=== PATIENT | female | born 1970 | race Caucasian/White ===

== ENCOUNTER 2020-04-20 18:26 | Emergency (ER) | payer OTHER ==
[~2020-04-20] VITALS: Ht 160 cm; Wt 63.5 kg
[2020-04-20 18:52] LABS: BILIRUBIN,URINE NEGATIVE (NEGATIVE); CLARITY,URINE CLEAR; COLOR,URINE YELLOW; GLUCOSE, URINE (UA) NEGATIVE (NEGATIVE); KETONES,URINE NEGATIVE (NEGATIVE); LEUKOCYTE ESTERASE ,URINE NEGATIVE (NEGATIVE); NITRITE,URINE NEGATIVE (NEGATIVE); PROTEIN,URINE NEGATIVE (NEGATIVE)
[2020-04-20] MEDS ORDERED: KETOROLAC 60 MG/2 ML VIAL IM STA (18:59)
[2020-04-20] MEDS ORDERED: CYCLOBENZAPRINE 10 MG (FLEXERIL) TAB PO STA (18:59)
[2020-04-20 19:01] LABS: BACTERIA,URINE TRACE /HPF; RBC,URINE RARE /HPF; SQUAMOUS EPITHELIAL CELL,UR 0-2 /HPF
--- NOTE | 2020-04-20 19:12 | ED Back Pain ---
General Chief Complaint: Back Problems Stated Complaint: L BACK PAIN, PELVIC PAIN Nursing Triage Note: PT AMB TO ROOM #7 WITH C/O R GROIN ET LOWER BACK PAIN. PT REPORTS DISCOMFORT BEGAN 2WKS AGO. DENIES URINARY S/S. A&OX4. Nursing Sepsis Screen: No Definite Risk History of Present Illness Date Seen by Provider: Apr 20, 2020 Time Seen by Provider: 18:50 Location: Lumbar Spine Timing/Duration: Changing Over Time, Other (2-3 weeks) Severity: Mild Pain/Injury Location: Back Radiation: Upper Legs (right groin) Method of Injury: Unknown Associated Symptoms: muscle spasms; No numbness in legs/feet, No tingling in legs/feet, No sensory/motor loss; lower back pain; No loss of bladder control, No loss of bowel control Allergies and Home Medications Allergies Coded Allergies: erythromycin base (Verified Allergy, Unknown, 04/20/20) Patient Home Medication List Home Medication List Reviewed: Yes Review of Systems Constitutional: no symptoms reported, see HPI Musculoskeletal: see HPI, back pain All Other Systems Reviewed Negative Unless Noted: Yes Past Bbdtypf-Gesuea-Diwgdk Hx Past Med/Social Hx: Reviewed Nursing Past Med/Soc Hx Patient Social History Alcohol Use: Rarely Uses Number of Drinks Today: 1 Alcohol Beverage of Choice: Vodka Recreational Drug Use: No Smoking Status: Current Everyday Smoker Type Used: Cigarettes 2nd Hand Smoke Exposure: Yes Recent Foreign Travel: No Contact w/Someone Who Travel: No Recent Infectious Disease Expo: No Recent Hopitalizations: No Seasonal Allergies Seasonal Allergies: No Past Medical History Surgeries: Yes (R ANKLE) Orthopedic Respiratory: No Cardiac: Yes Hypertension Neurological: No Genitourinary: No Gastrointestinal: No Musculoskeletal: No Endocrine: No HEENT: No Integumentary: No Physical Exam Vital Signs Vital Signs - First Documented 04/20/20 18:38 Temp 36.6 Pulse 65 Resp 18 B/P (MAP) 113/84 (94) Pulse Ox 96 O2 Delivery Room Air Capillary Refill : Less Than 3 Seconds Height, Weight, BMI Height: '" Weight: lbs. oz. kg; 24.00 BMI Method: General Appearance: No Apparent Distress, WD/WN HEENT: PERRL/EOMI, TMs Normal, Normal ENT Inspection, Pharynx Normal Neck: Full Range of Motion, Normal Inspection, Non Tender, Supple Cardiovascular: Regular Rate, Rhythm, No Edema Respiratory: Chest Non Tender, Lungs Clear, Normal Breath Sounds Gastrointestinal: Normal Bowel Sounds, Non Tender, Soft Back: Normal Inspection, No CVA Tenderness, Decreased Range of Motion, Muscle Spasm, Vertebral Tenderness (Lower Lumbar), Other (Power V/V L4-S1. + SLR on Right. ) Extremity: Normal Capillary Refill, Normal Inspection, Normal Range of Motion, Pelvis Stable, Other (No pain with ROM of hips) Neurologic/Psychiatric: Alert, Oriented x3, No Motor/Sensory Deficits, Normal Mood/Affect Skin: Normal Color, Warm/Dry Progress/Results/Core Measures Results/Orders Lab Results Laboratory Tests Test 04/20/20 18:40 Range/Units Urine Color YELLOW Urine Clarity CLEAR Urine pH 6.0 5-9 Urine Specific [place] <=1.005 1.016-1.022 Urine Protein NEGATIVE NEGATIVE Urine Glucose (UA) NEGATIVE NEGATIVE Urine Ketones NEGATIVE NEGATIVE Urine Nitrite NEGATIVE NEGATIVE Urine Bilirubin NEGATIVE NEGATIVE Urine Urobilinogen 0.2 < = 1.0 MG/DL Urine Leukocyte Esterase NEGATIVE NEGATIVE Urine RBC (Auto) 1+ H NEGATIVE Urine RBC RARE /HPF Urine WBC NONE /HPF Urine Squamous Epithelial Cells 0-2 /HPF Urine Crystals NONE /LPF Urine Bacteria TRACE /HPF Urine Casts NONE /LPF Urine Mucus NEGATIVE /LPF Urine Culture Indicated NO My Orders Orders - YENNI PIERSON Ua Culture If Indicated (04/20/20 18:34) Ketorolac Injection (Toradol Injection) (04/20/20 18:59) Cyclobenzaprine Tablet (Flexeril Tablet) (04/20/20 18:59) Lumbar Spine - 2-3 Views (04/20/20 18:59) Vital Signs/I&O 04/20/20 18:38 Temp 36.6 Pulse 65 Resp 18 B/P (MAP) 113/84 (94) Pulse Ox 96 O2 Delivery Room Air Blood Pressure Mean: 94 Diagnostic Imaging Diagonstic Imaging: Xray Plain Films/CT/US/NM/MRI: other (lumbar spine) Comments NAME: CHRISTEL LOMBARDO MED REC#: [id number] PT STATUS: REG ER : 1970 PHYSICIAN: YENNI PIERSON ADMIT DATE: 04/20/20/ER Signed Date of Exam:04/20/20 LUMBAR SPINE - 2-3 VIEWS INDICATION: Low back pain and right groin pain. Time of exam: 7:19 PM Frontal and lateral views of the lumbar spine were obtained. Curvature and alignment is normal. Vertebral body heights are well-maintained. Disc spaces are preserved. No fracture or subluxation is seen. IMPRESSION: No acute bony abnormality is detected. Dictated by: Dictated on workstation # [id number] Dict: 04/20/201930 Trans: 04/20/201937 [facility] [id number] Interpreted by: JUDIT DIAZ MD Electronically signed by: JUDIT DIAZ MD 04/20/201937 Reviewed: Reviewed by Me Departure Impression Primary Impression: Back strain Qualified Codes: S39.012A - Strain of muscle, fascia and tendon of lower back, initial encounter Additional Impression: Back pain Qualified Codes: M54.5 - Low back pain Disposition: 01 HOME, SELF-CARE Condition: Improved Departure-Patient Inst. Decision time for Depature: 19:20 Referrals: JIE VICK MD (PCP/Family) Primary Care Physician Patient Instructions: Low Back Pain (DC), Muscle Strain (DC) Add. Discharge Instructions: Alternate between Tylenol 650 mg and ibuprofen 600 mg every 4 hours for pain. Alternate between heat and ice to your low back. Follow-up with your primary care provider if symptoms are not improving or worsen. Use Biofreeze or icy hot with lidocaine. Return to emergency department for new, urgent health care problems. All discharge instructions reviewed with patient and/or family. Voiced understanding. Work/School Note: Work Release Form Date Seen in the Emergency Department: Apr 20, 2020 Return to Work: Apr 21, 2020 Restrictions: No Restrictions YENNI PIERSON Apr 20, 2020 19:12
--- NOTE | 2020-04-20 19:39 | Diagnostic Imaging Report ---
INDICATION: Low back pain and right groin pain. Time of exam: 7:19 PM Frontal and lateral views of the lumbar spine were obtained. Curvature and alignment is normal. Vertebral body heights are well-maintained. Disc spaces are preserved. No fracture or subluxation is seen. IMPRESSION: No acute bony abnormality is detected. Dictated by: Dictated on workstation # [id number]
[2020-04-20 19:45] VITALS: BP 114/80
--- OUTSIDE RECORDS SUMMARY | 2020-04-20 21:33 | XMS REPORT | Continuity of Care Document ---
Author Organization Unknown Address Unknown Phone Unavailable Allergies Active Description Code Type Severity Reaction Onset Reported/Identified Relationship to Patient Clinical Status Yes AZITHROMYCIN MODERATE MODERATE Medications Medication Packaging Start Date St op Date Route Dosage Sig NS 0.9##37; 1000 ML 02/22/2019 02/22/2019 IV 1 THIAMINE TAB 100 MG (VIT B-1) 02/22/2019 02/22/2019 ORAL 1 VITAMIN (THERAPEUTIC MULTIVITAMIN) 02/22/2019 02/22/2019 ORAL 1 methylPREDNISolone VIAL 125MG(soluMEDROL 02/22/2019 02/22/2019 IV PUSH 1 PANTOPRAZOLE 40 MG VIAL 02/22/2019 02/22/2019 IVPB 1 LORazepam INJ, 2 MG/ML IV/IM (ATIVAN) 02/22/2019 02/22/2019 IV PUSH 1 DUONEB 0.5/3 MG 3 ML UD 02/22/2019 02/22/2019 INHALATION 1 LISINOPRIL TAB 10 MG (ZESTRIL) MG 10/23/2019 10/23/2019 ONCE&1823 Problems Date Dx Coded Attending Type Code Diagnosis Diagnosed By 02/23/2019 IVY HERNANDEZ F1020 Alcohol dependence, uncomplicated 02/23/2019 IVY HERNANDEZ D24112 Nicotine dependence, cigarettes, uncomplicated 02/23/2019 IVY HERNANDEZ P J9801 Acute bronchospasm 02/23/2019 IVY HERNANDEZ K2920 Alcoholic gastritis without bleeding 02/23/2019 IVY HERNANDEZ R0600 Dyspnea, unspecified 02/23/2019 IVY HERNANDEZ R0609 Other forms of dyspnea 04/30/2019 Tosha Ferguson Final Z11.3 Encounter for screening for infections with a predomin antly 10/23/2019 EMILIE WEINSTEIN APRN W 401 .0 MALIGNANT ESSENTIAL HYPERTENSION 10/23/2019 EMILIE WEINSTEIN APRN I10 ESSENTIAL (PRIMARY) HYPERTENSION Procedures There is no data. Results Test Result Range CBCD (AUTO DIFF) - 04/20/19 22:35 WBC 10.6 x10 3UL 4.0 - 10.0 NEUTROPHIL % 54.4 % 30.0 - 75.0 LYMPHOCYTES % 33.9 % 18.0 - 40.0 MONOCYTES % 9.6 % 1.0 - 8.0 EOSINOPHILS % 1.1 % 0.0 - 3.0 BASOPHILS % 0.5 % 0.0 - 2.0 IMMAT GRAN % 0.5 % 0.0 - 1.0 RBC 4.64 MIL/UL 4.20 - 5.00 HGB 14.0 g/dL 12.0 - 15.0 HCT 41.9 % 37.0 - 47.0 MCV 90 FL 80 - 100 MCH 30.2 PG 26.0 - 35.0 MCHC 33.4 % 28.0 - 37.3 RDW 14.8 %CV 10.5 - 14.5 PLATELETS 344 X10 3UL 150 - 400 NRBC 0 % 0 - 0 DIFFERENTIAL AUTOMATED NRG BASIC MET PANEL - 02/22/19 22:35 GLUCOSE 91 MG/DL 65 - 110 BUN 11 MG/DL 7 - 21 CREATININE 0.8 mg/dl 0.7 - 1.5 BUN/CRE RATIO 13.8 7.0 - 25.0 SODIUM 140 MMOL/L 137 - 145 POTASSIUM 4.0 MMOL/L 3.6 - 5.0 CHLORIDE 109 MMOL/L 98 - 107 CO2 23 mmol/L 22 - 30 CALCIUM 9.0 MG/DL 8.4 - 10.2 AGE 50 YEARS NRG gfr 81 NRG eGFR >60 mL/min/BSA NRG MAGNESIUM - 02/22/19 22:35 MAGNESIUM 2.1 MG/DL 1.7 - 2.2 TROPONIN I - 02/22/19 22:35 TROPONIN I <0.012 NG/ML 0.000 - 0.030 HEPATIC FUNCT PANEL - 02/22/19 22:35 HEPATIC FUNCT PANEL LAB NRG SGOT 42 U/L 8 - 39 ALKALINE PHOS 109 U/L 20 - 155 TOTAL BILI 0.20 MG/DL 0.20 - 1.20 DIRECT BILI 0.2 MG/DL 0.0 - 0.4 SGPT 34 U/L 9 - 52 ALBUMIN 4.0 G/DL 3.5 - 5.0 TOTAL PROTEIN 7.4 G/DL 6.3 - 8.2 LIPASE - 02/22/19 22:35 LIPASE 245 U/L 23 - 300 CHLAMYDIA GC BY PCR - 04/30/19 14:20 N. Gonorrhoeae Amplified Not Detected N ot Detected C. Trachomatis Amplified Not Detected N ot Detected Media Type Urine NRG Trichomonas by PCR - 04/30/19 14:20 Media Type Urine NRG HIV 1/2 AG/AB REFLEX - 04/30/19 14:20 HIV p24 Antigen Negative Negative HEP C AB, REFLEX to QUANT AND GENOTYPE - 04/30/19 14:20 Hepatitis C Virus Ab 0.04 0.00-0.90 SYPHILIS (TP) AB - 04/30/19 14:20 Syphilis Antibody Interp Non-Reactive N on-Reactive Syphilis Antibody Quant 0.1 0.0-0. 9 Cardiac Panel - 10/23/19 18:23 CK 41 U/L 26-174 CK-MB 1.2 ng/ml 0.0-9.2 Myoglobin 17.2 ng/ml 1.6-106.0 Troponin <0.020 ng/mL 0.0-0.4 Urinalysis - 10/23/19 18:55 Icotest N/A Negative Urine Volume Urine Volume Sufficient (10mL) Urine Yeast No Yeast present Urine-Appearance Slightly Cloudy Clear Urine-Bacteria Trace Urine-Bilirubin Negative Negative Urine-Blood 1+ Negative Urine-Color Yellow Colorless-[place] ow Urine-Epithelial Cells 0-5/HPF Urine-Glucose Negative Negative Urine-Ketones Negative Negative Urine-Leukocytes Negative Negative Urine-Nitrite Negative Negative Urine-Other Urine Saved if Culture Need ed (48hrs from time of collection) Urine-pH 6.0 5-8.5 Urine-Protein Negative Negative Urine-RBC 0-2/HPF Urine-Specific [place] 1.025 1.000-1 .030 Urine-WBC Rare/HPF Urobilinogen 0.2 0.2-1.0 Complete urinalysis with reflex to cultu re - 04/20/20 18:40 Urine color determination YELLOW NRG Urine clarity determination CLEAR NR G Urine pH measurement by test strip 6.0 5-9 Specific gravity of urine by test strip <= 1.016-1.022 Urine protein assay by test strip, semi-quantitative NEGATIVE NEGATIVE Urine glucose detection by automated test strip NE GATIVE NEGATIVE Erythrocytes detection in urine sediment by light micr oscopy 1+ NEGATIVE Urine ketones detection by automated test strip NE GATIVE NEGATIVE Urine nitrite detection by test strip NEGATIVE NEGATIVE Urine total bilirubin detection by test strip NEGA TIVE NEGATIVE Urine urobilinogen measurement by automated test strip (mass/volume) 0.2 mg/dL < = 1.0 Urine leukocyte esterase detection by dipstick NEG ATIVE NEGATIVE Automated urine sediment erythrocyte cou nt by microscopy (number/high power field) RARE NRG Automated urine sediment leukocyte count by microscopy (number/high power field) NONE NRG Bacteria detection in urine sediment by light microsco py TRACE NRG Squamous epithelial cells detection in u rine sediment by light microscopy 0-2 NRG Crystals detection in urine sediment by light microsco py NONE NRG Casts detection in urine sediment by light microscopy NONE NRG Mucus detection in urine sediment by light microscopy NEGATIVE NRG Complete urinalysis with reflex to culture NO NRG Encounters ACCT No. Visit Date/Time Discharge Status Pt. Type Provider Facility Loc./Unit Complaint [id number] 02/22/2019 22:31:00 02/23/2019 00:48: 00 DIS Emergency IVY HERNANDEZ A 0 14 C/O COPD [id number] 04/30/2019 18:01:00 Document Registration [id number] 04/20/2020 19:01:00 Document Registration [id number] 04/30/2019 18:01:00 9 23:59:00 DIS Outpatient Tosha Ferguson [facility] [id number] 10/23/2019 17:57:00 10/23/2019 19:26 :00 DIS Outpatient EMILIE WEINSTEIN APRN [facility] ER [id number] 10/23/2019 18:23:54 Document Registration [id number] 05/20/2019 04:37:36 ACT Document Registration [id number] 02/22/2019 22:31:00 Document Registration [id number] 05/19/2019 11:22:00 9 23:59:59 CLS Emergency [facility]SSA [facility] [id number] 11/12/2018 08:00:00 ACT Unknown [id number] 12/16/2019 14:00:00 12/16/2019 23:59: 59 CLS Outpatient [facility]
--- OUTSIDE RECORDS SUMMARY | 2020-04-20 21:33 | XMS REPORT ---
Author Author CHRISTEL Ferguson Organization [facility] enter Address [address], [address] [place] [address] Care Team Providers Care Electrical Power Station Technician Name Role Phone Tosha Ferguson Unavailable PROBLEMS Type Condition ICD9-CM Code [id number] Code Onset Dates Condition S tatus SNOMED Code Problem Anxiety F41.9 Active 32218021 Problem PTSD (post-traumatic stress disorder) F43.10 Active 27198649 Problem Hypertension I10 Active 6395305 3 Problem Depression F32.9 Active 05248374 ALLERGIES No Information ENCOUNTERS Encounter Location Date Diagnosis [facility] [address] [id number] [id number] May, [facility] [address] [id number] [id number] May, [address] [id number] [id number] Apr, Encounter for drug rehabilit ation Z71.51 ; Screening for STD (sexually transmitted disease) Z11.3 ; Methamphetamine abuse F15.10 ; Tobacco abuse Z72.0 and Depression F32.9 IMMUNIZATIONS No Known Immunizations SOCIAL HISTORY Never Assessed REASON FOR VISIT propanolol and paroxetine PLAN OF CARE VITAL SIGNS MEDICATIONS Medication Instructions Dosage Frequency Start Date End Date Duration S tatus Paroxetine HCl 10 MG Orally at bedtime 3 tablets Active Propranolol HCl 10 MG Orally twice per day 1 tablet Active RESULTS No Results PROCEDURES No Known procedures INSTRUCTIONS MEDICATIONS ADMINISTERED No Known Medications MEDICAL (GENERAL) HISTORY Type Description Date Medical History PTSD (post-traumatic stress disorder) Medical History Depression Medical History Anxiety Medical History Hypertension Surgical History APPENDECTOMY 1972 Surgical History TONSILLECTOMY 1976 Surgical History 04/2005 Surgical History FRACTURED RIGHT ANKLE 11/2009 Hospitalization History [facility] INPATIENT---DETOX 2018
--- OUTSIDE RECORDS SUMMARY | 2020-04-20 21:33 | XMS REPORT ---
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 Name Role Phone Tosha Ferguson Unavailable PROBLEMS Type Condition ICD9-CM Code [id number] Code Onset Dates Condition S tatus SNOMED Code Problem Anxiety F41.9 Active 88903244 Problem PTSD (post-traumatic stress disorder) F43.10 Active 61163350 Problem Hypertension I10 Active 7343640 3 Problem Depression F32.9 Active 64071607 ALLERGIES No Information ENCOUNTERS Encounter Location Date Diagnosis [facility] [address] [id number] [place], [place] [id number] May, [facility] [address] [id number] [place] [id number] May, [address] [id number] [place], [place] [phone] Apr, Encounter for drug rehabilit ation Z71.51 ; Screening for STD (sexually transmitted disease) Z11.3 ; Methamphetamine abuse F15.10 ; Tobacco abuse Z72.0 and Depression F32.9 IMMUNIZATIONS No Known Immunizations SOCIAL HISTORY Never Assessed REASON FOR VISIT Refills PLAN OF CARE VITAL SIGNS MEDICATIONS Medication Instructions Dosage Frequency Start Date End Date Duration S tatus Paroxetine HCl 10 MG Orally at bedtime 3 tablets 30 days Active Propranolol HCl 10 MG Orally twice per day 1 tablet 30 days Active RESULTS No Results PROCEDURES No Known procedures INSTRUCTIONS MEDICATIONS ADMINISTERED No Known Medications MEDICAL (GENERAL) HISTORY Type Description Date Medical History PTSD (post-traumatic stress disorder) Medical History Depression Medical History Anxiety Medical History Hypertension Surgical History APPENDECTOMY 1972 Surgical History TONSILLECTOMY 1976 Surgical History 04/2005 Surgical History FRACTURED RIGHT ANKLE 11/2009 Hospitalization History [facility] INPATIENT---DETOX 2018
--- OUTSIDE RECORDS SUMMARY | 2020-04-20 21:33 | XMS REPORT ---
Author Author CHRISTEL Ferguson Organization [facility] enter Address [address], [address] [place] [address] Care Team Providers Care Graphic Technician Name Role Phone Tosha Ferguson Unavailable PROBLEMS Type Condition ICD9-CM Code [id number] Code Onset Dates Condition S tatus SNOMED Code Problem Anxiety F41.9 Active 85833689 Problem PTSD (post-traumatic stress disorder) F43.10 Active 11687705 Problem Hypertension I10 Active 0542302 3 Problem Depression F32.9 Active 31078186 ALLERGIES Substance Reaction Event Type Date Status ERYTHROMYIN DIFFICULTY WALKING Non Drug Allergy Apr, Activ e ENCOUNTERS Encounter Location Date Diagnosis [address] [id number] [id number] Apr, Encounter for drug rehabilit ation Z71.51 ; Screening for STD (sexually transmitted disease) Z11.3 ; Methamphetamine abuse F15.10 ; Tobacco abuse Z72.0 and Depression F32.9 IMMUNIZATIONS No Known Immunizations SOCIAL HISTORY Never Assessed REASON FOR VISIT FIRST STEP EXAM PLAN OF CARE Activity Details Follow Up prn Reason: Pending Test CHLAMYDIA GC URINE Pending Test SYPHILIS TREPONEMAL ANTIBODY Pending Test TV PCR Trichomonas Vaginalis by PCR Pending Test HIV 1,2 4th Gen, Reflex to D ifferentiation & PCR Pending Test Hepatitis C Virus Ab, Reflex to Quant & Genotype VITAL SIGNS Temperature 98.5 degrees Fahrenheit 2019-04-30 Heart Rate 66 /min 2019-04-30 Height 63 in 2019-04-30 Weight 156 lbs 2019-04-30 BMI 27.63 kg/m2 2019-04-30 Respiratory Rate 16 /min 2019-04-30 Oximetry 97 % 2019-04-30 Blood pressure systolic 138 mm Hg 2019-04-30 Blood pressure diastolic 84 mm Hg 2019-04-30 MEDICATIONS Unknown Medications RESULTS No Results PROCEDURES Procedure Date Ordered Result Body Site VENIPUNCT, ROUTINE* April 30, 2019 INSTRUCTIONS MEDICATIONS ADMINISTERED No Known Medications MEDICAL (GENERAL) HISTORY Type Description Date Medical History PTSD (post-traumatic stress disorder) Medical History Depression Medical History Anxiety Medical History Hypertension Surgical History APPENDECTOMY 1971 Surgical History TONSILLECTOMY 1976 Surgical History 04/2005 Surgical History FRACTURED RIGHT ANKLE 11/2009 Hospitalization History [facility] INPATIENT---DETOX 2018
== END 2020-04-20 19:45 | disposition home or self-care (01) ==
LOC: ER 18:29
DX: S39.012A Strain of muscle, fascia and tendon of lower back, initial encounter (principal); F17.210 Nicotine dependence, cigarettes, uncomplicated; Z88.1 Allergy status to other antibiotic agents; X58.XXXA Exposure to other specified factors, initial encounter
CPT/HCPCS: 72100; 81000

== ENCOUNTER 2020-04-25 08:26 | Emergency (ER) | payer OTHER ==
[~2020-04-25] VITALS: Ht 160 cm; Wt 63.6 kg
--- OUTSIDE RECORDS SUMMARY | 2020-04-25 08:30 | XMS REPORT | Continuity of Care Document ---
Author Organization Unknown Address Unknown Phone Unavailable Allergies Active Description Code Type Severity Reaction Onset Reported/Identified Relationship to Patient Clinical Status Yes AZITHROMYCIN MODERATE MODERATE Yes erythromycin base [id number] Drug Allergy Unknown N/A 04/20/2020 Medications Medication Packaging Start Date St op [...] F1020 Alcohol dependence, uncomplicated 02/23/2019 IVY HERNANDEZ S W52237 Nicotine dependence, cigarettes, uncomplicated 02/23/2019 IVY HERNANDEZ P J9801 Acute bronchospasm 02/23/2019 IVY HERNANDEZ S K2920 Alcoholic gastritis without bleeding 02/23/2019 IVY HERNANDEZ A R0600 Dyspnea, unspecified 02/23/2019 IVY HERNANDEZ S R0609 Other forms of dyspnea 04/30/2019 Tosha Ferguson Final Z11.3 Encounter for screening for infections with a predomin antly 10/23/2019 EMILIE WEINSTEIN APRN 401 .0 MALIGNANT ESSENTIAL HYPERTENSION 10/23/2019 CORINNA 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 Results Test Result Range CBCD (AUTO DIFF) - 02/22/19 22:35 WBC 10.6 x10 3UL 4.0 - [...] Negative Urine-Blood 1+ Negative Urine-Color Yellow Colorless-Lt. [place] ow Urine-Epithelial Cells 0-5/HPF Urine-Glucose Negative Negative Urine-Ketones Negative Negative Urine-Leukocytes Negative Negative Urine-Nitrite Negative Negative Urine-Other Urine Saved if Culture Need ed (48hrs from time of collection) Urine-pH 6.0 5-8.5 Urine-Protein Negative Negative Urine-RBC 0-2/HPF Urine-Specific [place] 1.025 1.000-1 .030 Urine-WBC Rare/HPF Urobilinogen 0.2 [...] Status Pt. Type Provider Facility Loc./Unit Complaint [id number] 02/22/2019 22:31:00 02/23/2019 00:48: 00 DIS Emergency IVY HERNANDEZ A 0 14 C/O COPD [id number] 04/30/2019 18:01:00 Document Registration [id number] 04/20/2020 18:29:00 020 19:45:00 DIS Outpatient YENNI PIERSON a [facility] ER L BACK PAIN, PELVIC DILAN N [id number] 04/30/2019 18:01:00 9 23:59:00 DIS Outpatient Tosha Ferguson [facility] [id number] 10/23/2019 17:57:00 10/23/2019 19:26 :00 DIS Outpatient EMILIE WEINSTEIN APRN [facility] ER [id number] 10/23/2019 18:23:54 Document Registration [id number] 05/20/2019 04:37:36 ACT Document Registration [id number] 02/22/2019 22:31:00 Document Registration [id number] 05/19/2019 11:22:00 9 23:59:59 [facility] Emergency ALLYSSA SPIVEY [facility] [id number] 11/12/2018 08:00:00 ACT Unknown [id number] 04/22/2020 16:45:00 ACT Outpatient [facility]
[2020-04-25] MEDS ORDERED: NS IV 1000 ML 1,000 ML IV SCH (09:06)
[2020-04-25] MEDS ORDERED: NITROGLYCERIN 0.4 MG SL TABS BTL 25'S SL ONE (09:09)
[2020-04-25] MEDS ORDERED: ASPIRIN 81 MG CHEW (CHILDREN'S ASA) ONE (09:10)
[2020-04-25] MEDS ORDERED: ONDANSETRON 4 MG/2 ML (SDV) Z0FRAN ONE (09:10)
[2020-04-25] MEDS ORDERED: ASPIRIN 81 MG CHEW (CHILDREN'S ASA) PO ONE (09:15)
[2020-04-25] MEDS ORDERED: ONDANSETRON 4 MG/2 ML (SDV) Z0FRAN IVP ONE (09:15)
[2020-04-25] MEDS ORDERED: SERT100T8 PO (09:16)
[2020-04-25] MEDS ORDERED: OMEP10CA5 PO (09:16)
[2020-04-25] MEDS ORDERED: PRAZ1CAP2 PO (09:16)
[2020-04-25 09:26] LABS: BASOPHILS % (AUTO) 0 % (0-10); EOSINOPHILS # (AUTO) 0.1 10^3/uL (0.0-0.3); EOSINOPHILS % (AUTO) 1 % (0-10); HEMATOCRIT 45 % (35-52); HEMOGLOBIN 15.3 G/DL (11.5-16.0); LYMPHOCYTES % (AUTO) 13 % (12-44); MEAN CORPUSCULAR HEMOGLOBIN 29 PG (25-34); MEAN CORPUSCULAR HGB CONC 34 G/DL (32-36); MEAN CORPUSCULAR VOLUME 84 FL (80-99); MEAN PLATELET VOLUME 10.7 FL (7.4-10.4); MONOCYTES # (AUTO) 1.3 X 10^3 (0.0-1.0); MONOCYTES % (AUTO) 8 % (0-12); NEUTROPHILS # (AUTO) 12.6 X 10^3 (1.8-7.8); NEUTROPHILS % (AUTO) 78 % (42-75); PLATELET COUNT 328 10^3/uL (130-400); RED CELL DISTRIBUTION WIDTH 13.9 % (10.0-14.5); WHITE BLOOD COUNT 16.1 10^3/uL (4.3-11.0)
[2020-04-25] MEDS: NITROGLYCERIN 0.4 MG SL TABS BTL 25'S SL PRN ×2 (09:32→09:40)
[2020-04-25 09:37] LABS: ALBUMIN 4.3 GM/DL (3.2-4.5); CHLORIDE 104 MMOL/L (98-107); POTASSIUM 3.6 MMOL/L (3.6-5.0); SODIUM 138 MMOL/L (135-145)
[2020-04-25 09:38] LABS: INR 0.9 (0.8-1.4); PROTHROMBIN TIME PATIENT 12.8 SEC (12.2-14.7)
--- NOTE | 2020-04-25 09:38 | Diagnostic Imaging Report ---
PATIENT HISTORY: Chest pain. TECHNIQUE: Single frontal view of the chest. COMPARISON: None FINDINGS: The lung volumes are normal. No focal consolidation is seen. No large pleural effusion or pneumothorax is seen. The cardiomediastinal silhouette is normal in size and contour. No acute osseous abnormality is seen. IMPRESSION: No acute pulmonary abnormality seen. Dictated by: Dictated on workstation # [id number]
[2020-04-25 09:39] LABS: GLUCOSE 106 MG/DL (70-105); TOTAL PROTEIN 8.3 GM/DL (6.4-8.2)
[2020-04-25 09:41] LABS: BILIRUBIN,TOTAL 0.9 MG/DL (0.1-1.0); CARBON DIOXIDE 21 MMOL/L (21-32)
[2020-04-25 09:43] LABS: ALKALINE PHOSPHATASE 107 U/L (40-136); CREATININE SERUM 0.87 MG/DL (0.60-1.30); GFR ESTIMATED > 60
[2020-04-25 09:44] LABS: BUN/CREATININE RATIO 8
[2020-04-25 09:46] LABS: ALANINE AMINOTRANSFERASE 44 U/L (0-55); MAGNESIUM 1.8 MG/DL (1.6-2.4)
[2020-04-25 09:47] LABS: LIPASE 38 U/L (8-78)
[2020-04-25 09:52] LABS: BAND NEUTROPHILS 0 %; BASOPHILS % (MANUAL) 1 %; EOSINOPHILS % (MANUAL) 0 %; LYMPHOCYTES % (MANUAL) 19 %; MONOCYTES % (MANUAL) 5 %; NEUTROPHILS % (MANUAL) 75 %; RBC MORPH NORMAL
--- NOTE | 2020-04-25 10:05 | NUR ---
Pt swabbed for COVID-19 at this time.
--- NOTE | 2020-04-25 10:11 | ED Chest Pain ---
General Chief Complaint: Cough/Cold/Flu Symptoms Stated Complaint: FEVER / COUGH / SOA Nursing Triage Note: PT C/O COUGH, FEVER, VOMITING, CHEST PAIN STARTING YESTERDAY. SHE REPORTS SHE WORKS AT [employer] ET SOMEONE SHE WORKS WITH IS RUMORED TO HAVE COVID-19 Nursing Sepsis Screen: Possible Severe Sepsis Risk Source: patient Exam Limitations: no limitations History of Present Illness Date Seen by Provider: Apr 25, 2020 Time Seen by Provider: 09:39 Initial Comments PT to ER by POV with CP substernal to left chest and cough since yesterday. No Fever but positive malaise. Co-workers with Covid 19. Nausea but no vomiting. No Heart or lung Hx. Smokes 1/2 ppd. 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 No injecting or Hx of Endocarditis. No abd pain, dysuria or diarrhea. Allergies and Home Medications Allergies Coded Allergies: erythromycin base (Verified Allergy, Unknown, 04/20/20) Home Medications Benzonatate 100 Mg Capsule, 100 MG PO Q6H PRN for COUGH Prescribed by: NAREN NIELSEN on 04/25/20 1247 Omeprazole 10 Mg Capsule.dr, 10 MG PO DAILY, (Reported) Sertraline HCl 100 Mg Tablet, 100 MG PO DAILY, (Reported) Patient Home Medication List Home Medication List Reviewed: Yes Review of Systems Review of Systems Constitutional: No chills, No fever; malaise EENTM: No Blurred Vision, No Double Vision Respiratory: Cough, Shortness of Air Cardiovascular: Chest Pain; Denies Edema Gastrointestinal: Denies Constipated, Denies Diarrhea, Denies Nausea Genitourinary: Denies Discharge, Denies Drainage Musculoskeletal: No back pain, No joint pain Skin: No pruritus, No rash Psychiatric/Neurological: Denies Headache, Denies Numbness, Denies Paresthesia All Other Systems Reviewed Negative Unless Noted: Yes Past Bwtadxi-Yyymom-Uqoojg Hx Patient Social History Alcohol Use: Rarely Uses Alcohol Beverage of Choice: Vodka Recreational Drug Use: No Smoking Status: Current Everyday Smoker Type Used: Cigarettes 2nd Hand Smoke Exposure: Yes Recent Foreign Travel: No Contact w/Someone Who Travel: No Recent Infectious Disease Expo: No Recent Hopitalizations: No Physical Abuse: No Sexual Abuse: No Fear: No Seasonal Allergies Seasonal Allergies: No Past Medical History Surgeries: Yes (R ANKLE) Orthopedic Respiratory: No Cardiac: Yes Hypertension Neurological: No Genitourinary: No Gastrointestinal: No Musculoskeletal: No Endocrine: No HEENT: No Psychosocial: Yes Sleep Difficulties Integumentary: No Physical Exam Vital Signs Vital Signs - First Documented 04/25/20 08:30 Temp 36.7 Pulse 93 Resp 24 B/P (MAP) 153/118 (130) Pulse Ox 96 O2 Delivery Room Air Capillary Refill : Less Than 3 Seconds Height, Weight, BMI Height: '" Weight: lbs. oz. kg; 24.00 BMI Method: General Appearance: No Apparent Distress, WD/WN HEENT: PERRL/EOMI, Pharynx Normal, Moist Mucous Membranes Neck: Full Range of Motion, Normal Inspection Respiratory: Chest Non Tender, No Accessory Muscle Use, No Respiratory Distress Cardiovascular: Regular Rate, Rhythm, No Edema, Normal Peripheral Pulses Gastrointestinal: Normal Bowel Sounds, Non Tender, Soft Extremity: Normal Capillary Refill, Normal Inspection Neurologic/Psychiatric: Alert, Oriented x3 Skin: Normal Color, Warm/Dry Progress/Results/Core Measures Results/Orders Lab Results Laboratory Tests Test 04/25/20 09:00 04/25/20 10:05 04/25/20 12:00 Range/Units White Blood Count 16.1 H 4.3-11.0 10^3/uL Red Blood Count 5.36 4.35-5.85 10^6/uL Hemoglobin 15.3 11.5-16.0 G/DL Hematocrit 45 35-52 % Mean Corpuscular Volume 84 80-99 FL Mean Corpuscular Hemoglobin 29 25-34 PG Mean Corpuscular Hemoglobin Concent 34 32-36 G/DL Red Cell Distribution Width 13.9 10.0-14.5 % Platelet Count 328 130-400 10^3/uL Mean Platelet Volume 10.7 H 7.4-10.4 FL Neutrophils (%) (Auto) 78 H 42-75 % Lymphocytes (%) (Auto) 13 12-44 % Monocytes (%) (Auto) 8 0-12 % Eosinophils (%) (Auto) 1 0-10 % Basophils (%) (Auto) 0 0-10 % Neutrophils # (Auto) 12.6 H 1.8-7.8 X 10^3 Lymphocytes # (Auto) 2.0 1.0-4.0 X 10^3 Monocytes # (Auto) 1.3 H 0.0-1.0 X 10^3 Eosinophils # (Auto) 0.1 0.0-0.3 10^3/uL Basophils # (Auto) 0.0 0.0-0.1 10^3/uL Neutrophils % (Manual) 75 % Lymphocytes % (Manual) 19 % Monocytes % (Manual) 5 % Eosinophils % (Manual) 0 % Basophils % (Manual) 1 % Band Neutrophils 0 % Blood Morphology Comment NORMAL Prothrombin Time 12.8 12.2-14.7 SEC INR Comment 0.9 0.8-1.4 Activated Partial Thromboplast Time 29 24-35 SEC Sodium Level 138 135-145 MMOL/L Potassium Level 3.6 3.6-5.0 MMOL/L Chloride Level 104 98-107 MMOL/L Carbon Dioxide Level 21 21-32 MMOL/L Anion Gap 13 5-14 MMOL/L Blood Urea Nitrogen 7 7-18 MG/DL Creatinine 0.87 0.60-1.30 MG/DL Estimat Glomerular Filtration Rate > 60 BUN/Creatinine Ratio 8 Glucose Level 106 H 70-105 MG/DL Calcium Level 9.0 8.5-10.1 MG/DL Corrected Calcium 8.8 8.5-10.1 MG/DL Magnesium Level 1.8 1.6-2.4 MG/DL Total Bilirubin 0.9 0.1-1.0 MG/DL Aspartate Amino Transf (AST/SGOT) 49 H 5-34 U/L Alanine Aminotransferase (ALT/SGPT) 44 0-55 U/L Alkaline Phosphatase 107 40-136 U/L Myoglobin 69.0 10.0-92.0 NG/ML Troponin I < 0.028 < 0.028 <0.028 NG/ML B-Type Natriuretic Peptide 79.7 <100.0 PG/ML Total Protein 8.3 H 6.4-8.2 GM/DL Albumin 4.3 3.2-4.5 GM/DL Lipase 38 8-78 U/L My Orders Orders - NAREN NIELSEN Cbc With Automated Diff (04/25/20 09:06) Magnesium (04/25/20 09:06) Chest 1 View, Ap/Pa Only (04/25/20 09:06) Ekg Tracing (04/25/20 09:06) Comprehensive Metabolic Panel (04/25/20 09:06) Myoglobin Serum (04/25/20 09:06) Protime With Inr (04/25/20 09:06) Partial Thromboplastin Time (04/25/20 09:06) O2 (04/25/20 09:06) Monitor-Rhythm Ecg Trace Only (04/25/20 09:06) Ed Iv/Invasive Line Start (04/25/20 09:06) Lipase (04/25/20 09:06) BNP (04/25/20 09:06) Nitroglycerin 0.4 Mg Btl 25's (Nitrostat (04/25/20 09:15) Aspirin Chewable Tablet (Baby Aspirin Ch (04/25/20 09:15) Ed Iv/Invasive Line Start (04/25/20 09:06) Ns Iv 1000 Ml (Sodium Chloride 0.9%) (04/25/20 09:06) Ondansetron Injection (Zofran Injectio (04/25/20 09:15) Troponin I (04/25/20 09:00) Manual Differential (04/25/20 09:00) Troponin I (04/25/20 12:00) Coronavirus Sars-Cov-2 So 2018 (04/25/20 10:11) Nitroglycerin 0.4 Mg Btl 25's (Nitrostat (04/25/20 09:09) Aspirin Chewable Tablet (Baby Aspirin Ch (04/25/20 09:10) Ondansetron Injection (Zofran Injectio (04/25/20 09:10) Medications Given in ED Current Medications Medications Dose Ordered Sig/Nataliia Route Start Time Stop Time Status Last Admin Dose Admin Aspirin 324 mg ONCE ONCE PO 04/25/20 09:15 04/25/20 09:16 DC 04/25/20 09:30 324 MG Nitroglycerin 0.4 mg UD PRN SL 04/25/20 09:15 04/25/20 13:06 DC 04/25/20 09:40 0.4 MG Ondansetron HCl 4 mg ONCE ONCE IVP 04/25/20 09:15 04/25/20 09:16 DC 04/25/20 09:16 4 MG Vital Signs/I&O 04/25/20 04/25/20 04/25/20 08:30 09:42 12:55 Temp 36.7 36.7 Pulse 93 68 Resp 24 18 B/P (MAP) 153/118 (130) 143/81 (130) Pulse Ox 96 93 O2 Delivery Room Air Room Air Room Air Blood Pressure Mean: 130 Progress Progress Note : Time: 10:13 Progress Note after ondansetron and 2 doses of NG the pain and Nausea is gone. Delta Trop at 1200. Heart Score 2 points. Low risk; 0.9-1.7% 30-day MACE; Repeat troponin at 3 hours and if negative, discharge home with outpatient follow-up. Initial ECG Impression Date: Apr 25, 2020 Initial ECG Impression Time: 08:38 Initial ECG Rate: 75 Initial ECG Rhythm: Normal Sinus Initial ECG Intervals: Normal Initial ECG Impression: Normal Initial ECG Comparisson: No Previous ECG Available Comment normal sinus without ST-T wave elevation or depression. Diagnostic Imaging Diagonstic Imaging: Xray Plain Films/CT/US/NM/MRI: chest (1v) Comments [facility] [place], [place] NAME: CHRISTEL LOMBARDO [facility] REC#: [id number] PT STATUS: REG ER : 1970 PHYSICIAN: NAREN NIELSEN MD ADMIT DATE: 04/25/20/ER Draft Date of Exam:04/25/20 CHEST 1 VIEW, AP/PA ONLY PATIENT HISTORY: Chest pain. TECHNIQUE: Single frontal view of the chest. COMPARISON: None FINDINGS: The lung volumes are normal. No focal consolidation is seen. No large pleural effusion or pneumothorax is seen. The cardiomediastinal silhouette is normal in size and contour. No acute osseous abnormality is seen. IMPRESSION: No acute pulmonary abnormality seen. Dictated on workstation # [id number] Dict: 04/25/20 0935 Trans: 04/25/20 0938 [facility] [id number] Interpreted by: ANDIE FERNÁNDEZ MD Electronically signed by: Reviewed: Reviewed by Me Departure Impression Primary Impression: Bronchopneumonia due to virus Disposition: 01 HOME, SELF-CARE Condition: Stable Departure-Patient Inst. Decision time for Depature: 12:37 Referrals: JIE VICK MD (PCP/Family) Primary Care Physician Patient Instructions: Coronavirus Disease 2019 (COVID-19) (DC), Pneumonia in Adults Add. Discharge Instructions: Plan to quarantine at home and limit any exposure to others until 72 hours symptom free. If your symptoms worsen or you have severe shortness of breath then please return to the ER. You may call your doctor's office if you have any questions. We will call you if your COVID-19 swab comes back positive. Tylenol 1000 mg every 8 hours as needed for fever or pain. Ibuprofen 800 mg every 8 hours as needed for fever or pain. Mucinex or over the counter cough remedies are available. Tessalon Perles 1-2 caplets every 6 hours as needed for cough keeping you from sleep or rest. Drink plenty of fluids. All discharge instructions reviewed with patient and/or family. Voiced understanding. Scripts Benzonatate (TESSALON PERLES) 100 Mg Capsule 100 MG PO Q6H PRN for COUGH, #20 CAP 0 Refills Prov: NAREN NIELSEN 04/25/20 Work/School Note: Work Release Form Date Seen in the Emergency Department: Apr 25, 2020 Return to Work: May 05, 2020 Restrictions: No Restrictions Other Restrictions Listed Below: May return sooner if 72 hours symptoms free. NAREN NIELSEN Apr 25, 2020 10:11
[2020-04-25] MEDS ORDERED: BENZ100C18 PO (12:47)
[2020-04-25 12:55] VITALS: BP 143/81
== END 2020-04-25 13:00 | disposition home or self-care (01) ==
LOC: EDUNIT# 08:26 → ER 08:27
DX: J12.9 Viral pneumonia, unspecified (principal); F17.210 Nicotine dependence, cigarettes, uncomplicated; Z20.828 Contact with and (suspected) exposure to other viral communicable diseases; Z88.1 Allergy status to other antibiotic agents
CPT/HCPCS: 71045; 80053; 83690; 83735; 83874; 83880; 84484; 85007; 85027; 85610; 85730; 93005; 93041; 99284; U0002; 36415; 87635

== ENCOUNTER 2020-07-21 04:18 | Emergency (ER) | payer OTHER ==
[~2020-07-21] VITALS: Ht 160 cm; Wt 70.0 kg
[~2020-07-21 04:18] MED LIST: BENZ100C18 PO; OMEP10CA5 PO; PRAZ1CAP2 PO; SERT100T8 PO
[2020-07-21 05:11] VITALS: BP 175/105
--- NOTE | 2020-07-21 06:32 | ED Lower Extremity ---
General Chief Complaint: Lower Extremity Stated Complaint: LEFT FOOT PAIN Nursing Triage Note: Pt here with left foot pain with onset yesterday afternoon; states she started a new job at [employer] and is on her feet more than normal. Nursing Sepsis Screen: No Definite Risk Source: patient Exam Limitations: no limitations History of Present Illness Date Seen by Provider: Jul 21, 2020 Time Seen by Provider: 05:45 Initial Comments This patient presents to the emergency room with complaints of fairly severe pain in the left foot near the distal end of the middle metatarsals, along the lateral edge of the fifth metatarsal, and radiating through to the heel. She denies any injury of any kind. Her shoes are about 3 months old and should be broken in. She has not taken any medications for the pain. She works at a [employer] where she is usually on her feet. Allergies and Home Medications Allergies Coded Allergies: erythromycin base (Verified Allergy, Unknown, 04/20/20) Home Medications Benzonatate 100 Mg Capsule, 100 MG PO Q6H PRN for COUGH Prescribed by: NAREN NIELSEN on 04/25/20 1247 Omeprazole 10 Mg Capsule.dr, 10 MG PO DAILY, (Reported) Sertraline HCl 100 Mg Tablet, 100 MG PO DAILY, (Reported) Patient Home Medication List Home Medication List Reviewed: Yes Review of Systems Constitutional: no symptoms reported EENTM: no symptoms reported Respiratory: no symptoms reported Cardiovascular: no symptoms reported Gastrointestinal: no symptoms reported Genitourinary: no symptoms reported Musculoskeletal: see HPI Skin: no symptoms reported Psychiatric/Neurological: No Symptoms Reported Past Zsavojs-Wkeosa-Lvlbul Hx Past Med/Social Hx: Reviewed Nursing Past Med/Soc Hx Patient Social History Alcohol Use: Denies Use Number of Drinks Today: FF Alcohol Beverage of Choice: Vodka Recreational Drug Use: No Smoking Status: Current Everyday Smoker Type Used: Cigarettes 2nd Hand Smoke Exposure: Yes Recent Foreign Travel: No Contact w/Someone Who Travel: No Recent Infectious Disease Expo: No Recent Hopitalizations: No Seasonal Allergies Seasonal Allergies: No Past Medical History Surgeries: Yes (R ANKLE) Orthopedic Respiratory: No Cardiac: Yes Hypertension Neurological: No Genitourinary: No Gastrointestinal: No Musculoskeletal: No Endocrine: No HEENT: No Psychosocial: Yes Sleep Difficulties Integumentary: No Physical Exam Vital Signs Vital Signs - First Documented 07/21/20 05:11 Temp 37.2 Pulse 67 B/P (MAP) 175/105 (128) Pulse Ox 95 O2 Delivery Room Air Capillary Refill : Less Than 3 Seconds Height, Weight, BMI Height: '" Weight: lbs. oz. 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 See discharge instructions. Diagnostic Imaging Diagonstic Imaging: Xray Plain Films/CT/US/NM/MRI: other (left foot) Comments Left foot x-ray viewed by me and report reviewed. See report below: NAME: CHRISTEL LOMBARDO [facility] REC#: [id number] PT STATUS: DEP ER : 1970 PHYSICIAN: BIJU CUMMINS MD ADMIT DATE: 07/21/20/ER Draft Date of Exam:07/21/20 FOOT, LEFT, 3 VIEWS HISTORY: Left foot pain TECHNIQUE: 3 views of the left foot COMPARISON: None FINDINGS: There is moderate hallux valgus. No acute fracture or dislocation is seen in the left foot. Alignment otherwise appears normal. No cortical erosions are seen. There is no ankle joint effusion. IMPRESSION: 1. No acute osseous abnormalities seen in the left foot. Dictated on workstation # [id number] Dict: 07/21/20 0632 Trans: 07/21/20 0655 [facility] [id number] Interpreted by: ANDIE FERNÁNDEZ MD Departure Impression Primary Impression: Left foot pain Disposition: 01 HOME, SELF-CARE Condition: Stable Departure-Patient Inst. Decision time for Depature: 06:30 Referrals: KIERAN JURADO MD (PCP/Family) Primary Care Physician Patient Instructions: NO INSTRUCTIONS GIVEN Add. Discharge Instructions: The cause of your pain is uncertain at this time. Try treating with ibuprofen up to 600 mg every 6 hours as needed and Tylenol (acetaminophen) up to 1000 mg every 6 hours as needed. Elevate to the level of your heart is much as possib le. Avoid any unnecessary standing, straining, or pressure on your foot until symptoms improve. 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 Return to the ER if you have notable worsening despite following these measures. All discharge instructions reviewed with patient and/or family. Voiced understanding. BIJU CUMMINS MD Jul 21, 2020 06:32
--- NOTE | 2020-07-21 06:56 | Diagnostic Imaging Report ---
HISTORY: Left foot pain TECHNIQUE: 3 views of the left foot COMPARISON: None FINDINGS: There is moderate hallux valgus. No acute fracture or dislocation is seen in the left foot. Alignment otherwise appears normal. No cortical erosions are seen. There is no ankle joint effusion. IMPRESSION: 1. No acute osseous abnormalities seen in the left foot. Dictated by: Dictated on workstation # [id number]
== END 2020-07-21 06:41 | disposition home or self-care (01) ==
LOC: EDUNIT# 04:18 → ER 04:21
DX: M79.672 Pain in left foot (principal); I10 Essential (primary) hypertension; F17.210 Nicotine dependence, cigarettes, uncomplicated; Z88.1 Allergy status to other antibiotic agents
CPT/HCPCS: 73630

== ENCOUNTER 2020-07-25 15:10 | Emergency (ER) | payer OTHER ==
[~2020-07-25] VITALS: Ht 165 cm; Wt 68.0 kg
--- NOTE | 2020-07-25 16:00 | ED Lower Extremity ---
General Chief Complaint: Lower Extremity Stated Complaint: L FOOT INJ Nursing Triage Note: . Patient reports L foot pain x 1.5 weeks Nursing Sepsis Screen: No Definite Risk History of Present Illness Date Seen by Provider: Jul 25, 2020 Time Seen by Provider: 15:56 Initial Comments This is a 66-year-old female who presents for persistent/worsening left foot pain that began one and half weeks ago. Denies any trauma or injury to the left foot. Pain is located at the mid metatarsal region and radiates distally to the third and fourth toes. . Pain is worse with movement and walking. States she has used naz bandage, ice, Tylenol and Ibuprofen and had minimal relief. Denies fevers, chills, nausea, vomiting, numbness, tingling, or loss of sensation. Onset: last week Severity: moderate Pain/Injury Location: left foot Method of Injury: unknown Modifying Factors: Worse With Jarring, Worse With Movement Allergies and Home Medications Allergies Coded Allergies: erythromycin base (Verified Allergy, Unknown, 04/20/20) Home Medications Benzonatate 100 Mg Capsule, 100 MG PO Q6H PRN for COUGH Prescribed by: NAREN NIELSEN on 04/25/20 1247 Omeprazole 10 Mg Capsule.dr, 10 MG PO DAILY, (Reported) Sertraline HCl 100 Mg Tablet, 100 MG PO DAILY, (Reported) Patient Home Medication List Home Medication List Reviewed: Yes Review of Systems Constitutional: no symptoms reported EENTM: no symptoms reported Respiratory: no symptoms reported Cardiovascular: no symptoms reported Gastrointestinal: no symptoms reported Genitourinary: no symptoms reported Musculoskeletal: see HPI Skin: no symptoms reported Psychiatric/Neurological: No Symptoms Reported Past Tlbytbk-Zyysjm-Kdxqvs Hx Patient Social History Alcohol Use: Past History Number of Drinks Today: FF Alcohol Beverage of Choice: Vodka Recreational Drug Use: No Type Used: Cigarettes 2nd Hand Smoke Exposure: Yes Recent Foreign Travel: No Contact w/Someone Who Travel: No Recent Infectious Disease Expo: No Recent Hopitalizations: No Seasonal Allergies Seasonal Allergies: No Past Medical History Surgeries: Yes (R ANKLE) Orthopedic Respiratory: No Cardiac: Yes Hypertension Neurological: No Genitourinary: No Gastrointestinal: No Musculoskeletal: No Endocrine: No HEENT: No Psychosocial: Yes Sleep Difficulties Integumentary: No Physical Exam Vital Signs Vital Signs - First Documented 07/25/20 15:29 Temp 37.0 Pulse 86 Resp 18 B/P (MAP) 178/98 (124) Pulse Ox 20 Capillary Refill : Less Than 3 Seconds Height, Weight, BMI Height: '" Weight: lbs. oz. kg; 24.00 BMI Method: General Appearance: WD/WN, no apparent distress HEENT: PERRL/EOMI, pharynx normal Neck: full range of motion, normal inspection Cardiovascular: regular rate, rhythm, no murmur Respiratory: chest non-tender, lungs clear Gastrointestinal: normal bowel sounds, non tender, soft Hips: bilateral hip non-tender, bilateral hip normal inspection, bilateral hip normal range of motion, bilateral hip no evidence of injury Legs: bilateral leg non-tender, bilateral leg normal inspection, bilateral leg normal range of motion, bilateral leg no evidence of injury Knees: bilateral knee non-tender, bilateral knee normal inspection, bilateral knee normal range of motion, bilateral knee no evidence of injury Ankles: bilateral ankle non-tender, bilateral ankle normal inspection, bilateral ankle normal range of motion, bilateral ankle no evidence of injury Feet: left foot non-tender; bilateral foot normal inspection, bilateral foot normal range of motion, bilateral foot no evidence of injury Neurologic/Tendon: normal sensation, normal motor functions, normal tendon functions Neurologic/Psychiatric: no motor/sensory deficits, alert, normal mood/affect, oriented x 3 Skin: normal color, warm/dry Progress/Results/Core Measures Results/Orders My Orders Orders - EMILIE WEINSTEIN [employer] Foot, Left, 2 View (07/25/20 16:00) Vital Signs/I&O 07/25/20 07/25/20 15:29 16:53 Temp 37.0 37.0 Pulse 86 86 Resp 18 18 B/P (MAP) 178/98 (124) 178/98 (124) Pulse Ox 20 20 Blood Pressure Mean: 124 Progress Progress Note : Progress Note Radiographs today showed no acute fractures. Radiologist did recommend following up with CT or MRI for persistent symptoms. I discussed this with the patient and she plans to follow up with her primary care provider tomorrow and see about scheduling an MRI. Diagnostic Imaging Diagonstic Imaging: Xray Plain Films/CT/US/NM/MRI: other (foot) Comments NAME: CHRISTEL LOMBARDO [facility] REC#: [id number] PT STATUS: DEP ER : 1970 PHYSICIAN: EMILIE WEINSTEIN [employer] ADMIT DATE: 07/25/20/ER Signed Date of Exam:07/25/20 FOOT, LEFT, 2 VIEW INDICATION: Worsening mid dorsal foot pain. TECHNIQUE: 3 views of the left foot. CORRELATION STUDY: 07/21/2020. FINDINGS: Hallux valgus alignment is again demonstrated. Bipartite medial sesamoid bone. Lucency within the fifth metatarsal, likely of no significance. No acute bony abnormality. Joint spaces are fairly well maintained. Soft tissues appearing unremarkable. IMPRESSION: 1. Negative for acute findings of the foot. Given continued symptoms, if further assessment is desired, MRI and/or CT imaging would be recommended. Dictated by: Dictated on workstation # [id number] Dict: 07/25/20 1626 Trans: 07/25/201703 AS6 [id number] Interpreted by: SAGRARIO COVINGTON DO Electronically signed by: SAGRARIO COVINGTON DO 07/25/20 1704 Reviewed: Reviewed by Me Departure Impression Primary Impression: Sprain or strain of foot Disposition: 01 HOME, SELF-CARE Condition: Stable/Unchanged Departure-Patient Inst. Decision time for Depature: 16:46 Referrals: KIERAN JURADO MD (PCP/Family) Primary Care Physician Patient Instructions: Stress Fracture of the Metatarsal Bone (DC) Add. Discharge Instructions: Plan: 1. Discharge home. 2. May take Tylenol or Ibuprofen as needed for pain per package instructions. 3. Follow up with your primary care provider if your symptoms persist for MRI to further evaluate injury. 4. Continue to rest, ice, use compression with naz bandage and keep elevated. 5. Return for any new or concerning symptoms. All discharge instructions reviewed with patient and/or family. Voiced understanding. EMILIE WEINSTEIN APRN Jul 25, 2020 16:00
--- NOTE | 2020-07-25 16:32 | Diagnostic Imaging Report ---
INDICATION: Worsening mid dorsal foot pain. TECHNIQUE: 3 views of the left foot. CORRELATION STUDY: 07/21/2020. FINDINGS: Hallux valgus alignment is again demonstrated. Bipartite medial sesamoid bone. Lucency within the fifth metatarsal, likely of no significance. No acute bony abnormality. Joint spaces are fairly well maintained. Soft tissues appearing unremarkable. IMPRESSION: 1. Negative for acute findings of the foot. Given continued symptoms, if further assessment is desired, MRI and/or CT imaging would be recommended. Dictated by: Dictated on workstation # [id number]
[2020-07-25 16:53] VITALS: BP 178/98
== END 2020-07-25 16:53 | disposition home or self-care (01) ==
LOC: EDUNIT# 15:10 → ER 15:11
DX: S93.525A Sprain of metatarsophalangeal joint of left lesser toe(s), initial encounter (principal); Z77.22 Contact with and (suspected) exposure to environmental tobacco smoke (acute) (chronic); Z88.1 Allergy status to other antibiotic agents; Z20.828 Contact with and (suspected) exposure to other viral communicable diseases; X58.XXXA Exposure to other specified factors, initial encounter
CPT/HCPCS: 73620

== ENCOUNTER → 2020-09-22 | Outpatient (CLI) | payer OTHER ==
[~2020-09-22] MED LIST changes: +HOLD METFORMIN - RECEIVED CONTRAST 20 ML VIAL IV SCH; +IOHEXOL 350 MG/ML 100 ML (OMNIPAQUE 350) VIAL IV ONE; +NS 100 ML (IVPB) BAG IV ONE
[2020-09-22 08:16] LABS: CHLORIDE 109 MMOL/L (98-107); POTASSIUM 3.9 MMOL/L (3.6-5.0); SODIUM 142 MMOL/L (135-145)
[2020-09-22 08:17] LABS: CALCIUM 8.7 MG/DL (8.5-10.1)
[2020-09-22 08:18] LABS: GLUCOSE 119 MG/DL (70-105)
[2020-09-22 08:19] LABS: TOTAL PROTEIN 7.3 GM/DL (6.4-8.2)
[2020-09-22 08:20] LABS: BILIRUBIN,TOTAL 0.2 MG/DL (0.1-1.0); CARBON DIOXIDE 21 MMOL/L (21-32)
[2020-09-22 08:22] LABS: ALKALINE PHOSPHATASE 129 U/L (40-136); CREATININE SERUM 0.93 MG/DL (0.60-1.30); GFR ESTIMATED > 60
[2020-09-22 08:23] LABS: BUN/CREATININE RATIO 19
[2020-09-22 08:25] LABS: ALANINE AMINOTRANSFERASE 12 U/L (0-55)
--- NOTE | 2020-09-22 08:54 | Diagnostic Imaging Report ---
PROCEDURE: CT abdomen and pelvis with contrast. TECHNIQUE: Multiple contiguous axial images were obtained through the abdomen and pelvis after administration of intravenous contrast. Auto Exposure Controls were utilized during the CT exam to meet ALARA standards for radiation dose reduction. All CT scans use one or more of the following dose optimizing techniques: automated exposure control, MA and/or KvP adjustment based on patient size and exam type or iterative reconstruction. INDICATION: Lower pelvic pain. No prior studies are available for comparison. The lung bases are clear. The liver and gallbladder are unremarkable. No mass or biliary duct dilatation is seen. Pancreas and spleen are unremarkable. No adrenal mass is identified. A 19 mm low-density lesion upper pole right kidney is noted suggestive of a cyst. Smaller cortical low density lesion in the left upper pole measures 11 mm, too small to characterize. No hydronephrosis is seen. Aorta is calcified but not aneurysmal. No central, retroperitoneal or mesenteric lymphadenopathy is detected. Small and large bowel loops are of normal caliber. There is no free fluid or fluid collection. There is a left adnexal cyst approximately 2 cm in size, likely ovarian. The bladder is unremarkable. Uterus is unremarkable. No definite pelvic lymphadenopathy is detected. Bony structures are nonacute. IMPRESSION: 1. Probable bilateral renal cysts and left ovarian cyst. The study is otherwise unremarkable. Dictated by: Dictated on workstation # [id number]
== END ==
LOC: RAD 08:45
PROVIDERS: ATTEND Nurse Practitioner Family
DX: R10.2 Pelvic and perineal pain (principal); R61 Generalized hyperhidrosis
CPT/HCPCS: 36415; 74177; 80053

== ENCOUNTER 2020-12-30 05:28 | Outpatient (RCR) | payer OTHER ==
[~2020-12-30] VITALS: Ht 160 cm; Wt 72.7 kg
[~2020-12-30 05:28] MED LIST changes: -HOLD METFORMIN - RECEIVED CONTRAST 20 ML VIAL IV SCH; -IOHEXOL 350 MG/ML 100 ML (OMNIPAQUE 350) VIAL IV ONE; -NS 100 ML (IVPB) BAG IV ONE; +OMEP20TA7 PO; +SERT-414 PO; -SERT100T8 PO
== END 2020-12-30 13:03 | disposition home or self-care (01) ==
LOC: PREOP 05:28
PROVIDERS: ATTEND Obstetrics & Gynecology
DX: Z01.818 Encounter for other preprocedural examination (principal); N93.9 Abnormal uterine and vaginal bleeding, unspecified; N71.1 Chronic inflammatory disease of uterus; Z20.822 Contact with and (suspected) exposure to COVID-19
CPT/HCPCS: 87635

== ENCOUNTER 2021-01-03 06:18 | Day surgery (SDC) | payer OTHER ==
[~2021-01-03] VITALS: Ht 160 cm; Wt 72.7 kg
[2021-01-03] VITALS (12 sets, daily range): BP systolic 115–155; BP diastolic 75–102
[2021-01-03] MEDS ORDERED: ONDANSETRON 4 MG/2 ML (SDV) Z0FRAN ONE ×2 (06:46→10:10)
[2021-01-03] MEDS ORDERED: proPOfol 200 MG/20 ML (DIPRIVAN) VIAL IV ONE (06:46)
[2021-01-03] MEDS ORDERED: LIDOCAINE PF 2% 5 ML (XYLOCAINE) VIAL ONE (06:46)
[2021-01-03] MEDS ORDERED: ROCURONIUM 10 MG/ML 5 ML SYRINGE IV ONE (06:46)
[2021-01-03] MEDS ORDERED: MIDAZOLAM 2 MG/2 ML (VERSED) VIAL ONE (06:47)
[2021-01-03] MEDS ORDERED: fentaNYL INJECTION 100 MCG/2 ML AMP ONE (06:47)
[2021-01-03] MEDS ORDERED: SEVOFLURANE (ULTANE) 15 ML INHAL SOLN ONE ×5 (06:49→09:03)
[2021-01-03 06:53] LABS: BASOPHILS # (AUTO) 0.1 10^3/uL (0.0-0.1); BASOPHILS % (AUTO) 0 % (0-10); EOSINOPHILS # (AUTO) 0.1 10^3/uL (0.0-0.3); EOSINOPHILS % (AUTO) 1 % (0-10); HEMATOCRIT 46 % (35-52); HEMOGLOBIN 14.9 g/dL (11.5-16.0); LYMPHOCYTES # (AUTO) 2.2 10^3/uL (1.0-4.0); LYMPHOCYTES % (AUTO) 19 % (12-44); MEAN CORPUSCULAR HEMOGLOBIN 31 pg (25-34); MEAN CORPUSCULAR HGB CONC 33 g/dL (32-36); MEAN CORPUSCULAR VOLUME 95 fL (80-99); MEAN PLATELET VOLUME 10.3 fL (9.0-12.2); MONOCYTES # (AUTO) 1.1 10^3/uL (0.0-1.0); MONOCYTES % (AUTO) 9 % (0-12); NEUTROPHILS # (AUTO) 8.3 10^3/uL (1.8-7.8); NEUTROPHILS % (AUTO) 70 % (42-75); PLATELET COUNT 301 10^3/uL (130-400); WHITE BLOOD COUNT 11.9 10^3/uL (4.3-11.0)
[2021-01-03] MEDS: LACTATED RINGERS 1,000 ML IV PRN ×2 (07:00→08:57)
[2021-01-03] MEDS ORDERED: metroNIDAZOLE 500MG/100ML IVPB 100 ML IV ONE (07:00)
[2021-01-03] MEDS ORDERED: ceFAZolin 2 GM IV Premixed 50 ML IV ONE (07:00)
--- NOTE | 2021-01-03 07:27 | Progress Note-Pre Operative ---
Pre-Operative Progress Note H&P Reviewed The H&P was reviewed, patient examined and no changes noted. Date Seen by Provider: Jan 03, 2021 Time Seen by Provider: 07:05 Date H&P Reviewed: Jan 03, 2021 Time H&P Reviewed: 07:05 Pre-Operative Diagnosis: CPP, POP ISIS AMHAN DO Jan 03, 2021 07:27
[2021-01-03] MEDS ORDERED: BUPIVACAINE 0.25% 30 ML (SENSORCAINE) VIAL ONE (08:26)
--- NOTE | 2021-01-03 08:44 | Discharge Inst-Women's Service ---
Discharge Inst-Women's Serv Depart Medication/Instructions New, Converted or Re-Newed RX: RX on Chart Final Diagnosis POD 0 [id number] Problems Reviewed?: Yes Consults/Follow Up Additional Follow Up: Yes Orders/Referrals Dr. Brothers in 7-10 days and in 8 weeks Activity Activity: Activity as Tolerated Driving Instructions: No Driving for 1 Week NO SMOKING: NO SMOKING Nothing Inside Vagina: No Douching, No [place], No Tampons Diet Discharge Diet: No Restrictions Symptoms to Report to : Bleeding Excessive, Pain Increased, Fever Over 101 Degrees F, Vaginal Bleeding Increase, Questions/Concerns For Any Problems or Questions: Contact Your Physician Skin/Wound Care Infection Signs and Symptoms: Increased Redness, Foul Odor of Wound, Increased Drainage, Skin Itchy or Has a Rash, Increased Swelling, Temperature Above 101 F Operative Area Clean and Dry: Keep Incision Clean/Dry Stitches/Diane/Dermabond: Dermabond, Care of Stitches Bathing Instructions: ISIS Mihcaels DO Jan 03, 2021 08:44
[2021-01-03] MEDS ORDERED: CHLORASEPTIC LOZENGE MM PRN (08:45)
[2021-01-03] MEDS ORDERED: SMT80CT PO (08:45)
[2021-01-03] MEDS ORDERED: ANTACID SUSP 30 ML UDC (MYLANTA) PO PRN (08:45)
[2021-01-03] MEDS ORDERED: DCS100C PO (08:45)
[2021-01-03] MEDS ORDERED: IBUP-844 PO (08:45)
[2021-01-03] MEDS ORDERED: HYDR-34 PO (08:45)
[2021-01-03] MEDS ORDERED: ONDANSETRON 4 MG/2 ML (SDV) Z0FRAN IV PRN (08:45)
[2021-01-03] MEDS ORDERED: ZOLPIDEM 5 MG (AMBIEN) TAB PO PRN (08:45)
[2021-01-03] MEDS ORDERED: PHENYLEPHRINE 100 MCG/ML 10 ML (ANESTHESIA) SYR ONE (09:04)
[2021-01-03] MEDS ORDERED: LABETALOL HCL 20 MG/4 ML VIAL ONE ×2 (09:04→09:39)
[2021-01-03] MEDS ORDERED: GLYCOPYRROLATE 0.2 MG/ML (ROBINUL) 2 ML VIAL ONE (09:51)
[2021-01-03] MEDS ORDERED: NEOSTIGMINE 3 MG/3 ML VIAL ONE (09:51)
[2021-01-03] MEDS ORDERED: morphine INJ 10 MG/ML 1ML (SYR OR VIAL) ONE (10:06)
[2021-01-03] MEDS ORDERED: ONDANSETRON 4 MG/2 ML (SDV) Z0FRAN IVP PRN (10:30)
[2021-01-03] MEDS ORDERED: PROMETHAZINE INJ 25 MG/ML (PHENERGAN) AMP IVP ONE (10:30)
[2021-01-03] MEDS ORDERED: HYDROmorphone 2 MG/ML VIAL (DILAUDID) IV ONE (10:30)
[2021-01-03] MEDS ORDERED: morphine INJ 10 MG/ML 1ML (SYR OR VIAL) IVP ONE (10:30)
[2021-01-03] MEDS ORDERED: KETOROLAC 30 MG/ML VIAL ONE (10:33)
[2021-01-03] MEDS ORDERED: HYDROmorphone 2 MG/ML VIAL (DILAUDID) ONE (10:33)
[2021-01-03] MEDS: KETOROLAC 30 MG/ML VIAL IV PRN ×3 (10:39→23:31)
[2021-01-03] MEDS: LACTATED RINGERS 1,000 ML IV SCH ×3 (10:45→16:57)
[2021-01-03] MEDS: HYDROcodone/APAP 7.5 MG/325 MG (LORTAB, LORCET PLUS) TABLET PO PRN ×2 (15:39→21:42)
--- NOTE | 2021-01-03 17:03 | OPERATIVE REPORT ---
DATE OF SERVICE: PREOPERATIVE DIAGNOSES: 1. A 50-year-old female with chronic pelvic pain. 2. Pelvic organ prolapse. POSTOPERATIVE DIAGNOSES: 1. A 50-year-old female with chronic pelvic pain. 2. Pelvic organ prolapse. PROCEDURE: Robotic-assisted total laparoscopic hysterectomy with bilateral salpingo-oophorectomy. SURGEON: Peña Mahan DO ANESTHESIA: General endotracheal. ESTIMATED BLOOD LOSS: Minimal. URINE OUTPUT: 20 mL clear at the end of the procedure. FLUIDS: 1500 mL lactated Ringer's solution. FINDINGS: Grossly normal appearing cervix, uterus, bilateral fallopian tubes and ovaries. There is a rather large paratubal cyst that appears to be a benign hydatid cyst. There is a grade II to III rectocele and a grade II cystocele noted on external female genitalia evaluation. SPECIMEN SENT: Uterus, bilateral fallopian tubes and ovaries. INDICATIONS FOR PROCEDURE: This 50-year-old female is a patient who had sought my advice in counseling due to chronic pelvic pain. She had an endometrial biopsy due to an episode of postmenopausal bleeding that revealed chronic endometritis. She was treated on a 14-day regimen of doxycycline. Follow up from this reviewed absolutely no improvement in her pain. She did have an ultrasound evaluation, which was basically normal; however, on pelvic examination in the office, she was found to have mild degree of prolapse. I discussed is the patient how the prolapse given her history of heavy lifting and the physical nature of her job could be causing her pain. She wanted to proceed with hysterectomy due to her feeling like the pain was secondary to her uterus. Risks of procedure were discussed with the patient in detail including risk of bleeding, infection, damage to surrounding structures including, but not limited to bowel, bladder, ureter, kidneys, possible need for reoperation, recovery timeframe, risk from anesthesia and even . After everything was discussed with the patient in detail, consent was obtained in the preoperative area and the patient was taken to the operating room. OPERATIVE REPORT IN DETAIL: Once in the operating room, general anesthesia was found to be adequate, placed in dorsal lithotomy position, prepped and draped in normal sterile fashion. A Parker catheter was placed and a timeout was performed. A weighted speculum was inserted to the patient's vagina. A right angle retractor was used to visualize the cervix. It was grasped at 12 o'clock position using a long Allis clamp and 0 Vicryl suture was then placed in the anterior lip of cervix and used as my retraction point. I removed the Allis clamp. At that point, I am able to sound the uterine cavity, depth using a uterine sound to a depth of 8 cm. I then selected an 8 cm Georgina uterine manipulator tip and a 3.5 cm colpotomy ring. The manipulator tip was advanced into the uterus where the balloon was deployed. Colpotomy ring was advanced around the vaginal fornix. I then performed a change of gloves after I removed the other instruments from the patient's vagina and I then took my place at the abdomen where after my change of gloves, I infiltrated the infraumbilical area using 0.25% Marcaine to make an 8 mm incision with a knife and directed Veress needle through the incision, intraperitoneal placement confirmed using saline drop test. An opening pressure of 7 mmHg was noted, proceeded to max pressure of 15 mmHg, at which point I removed the Veress needle and introduced a laparoscopic da Nabor camera trocar. Once this was in place, I am able to confirm intraperitoneal placement using the da Nabor laparoscope. This is an mm laparoscope. I then had the patient placed in steep Trendelenburg after briefly scanning the upper abdominal anatomy appears to be grossly normal. There is no evidence of damage from entry site. I then placed two lateral trocars approximately 8 cm lateral to my infraumbilical trocar. Both of these trocars were placed under direct visualization and laparoscope in similar fashion. The skin was infiltrated using 0.25% Marcaine with 8 mm incisions were made and the trocars were placed under direct visualization. Once both these trocars were in place, I brought in the da Nabor robot and docked in appropriate fashion, I placed the vessel sealer in the left hand and monopolar ladi in the right hand. I then took my place at the [employer] operative console and performed the following dissection bilaterally. Starting at the infundibulopelvic ligament, I bipolar cauterized and transected using vessel sealer. I then grasped the round ligament, which I bipolar cauterized and transected using the vessel sealer. I then grasped the entire broad ligament, which I bipolar cauterized and transected using vessel sealer. I do this down to the level of the lower uterine segment, at which point I the anterior and posterior lip of the broad ligament, anterior leaflet was taken around to the anterior vaginal fornix and posterior leaflets was taken around the posterior vaginal fornix. This allows me to skeletonize the uterine vessels laterally, which I bipolar cauterized and transected using vessel sealer. I then created a colpotomy at 12 o'clock position on the vaginal fornix. I took this circumferentially using the monopolar ladi around the vaginal fornix amputating the cervix away from the vagina. The entire specimen was then removed through the vagina. I then closed the lateral vaginal apices of the vaginal cuff using 2-0 Vicryl suture in a [id number] fashion colposuspending them to the uterosacral ligaments. I then closed the remainder of the vaginal cuff using 2-0 V-Loc in a running fashion, after which there was no active bleeding noted from any of my dissection planes. I then undocked the da Nabor robot and proceeded with the remainder of the case laparoscopically. I copiously irrigated the pelvis laparoscopically again using normal saline. There was no active bleeding noted from any of my dissection planes. I placed Surgiflo hemostatic agent over all my planes of dissection to ensure excellent postoperative hemostasis. I then had the patient taken out of steep Trendelenburg where I removed the lateral trocars under direct visualization of the laparoscope and infraumbilical trocars left in place to release insufflation and to introduce 10 mL of 0.25% Marcaine into the peritoneal cavity for postoperative pain management. I then removed this trocar as well. The skin reapproximated using 4-0 Monocryl in interrupted subcuticular stitches. Dermabond was applied to incisions and Band-Aids were placed over the incisions as well. The patient tolerated the procedure well and sent to recovery in stable condition with Parker catheter still in place. Lap and sponge counts were correct at the end of the procedure. Instrument counts correct as well. Two grams of Ancef, 500 mg of Flagyl were given preoperatively for infection prophylaxis. Job ID: [id number] DocumentID: [id number] Dictated Date: 01/03/2021 10:28:16 Facilities Supervisor Date: 01/03/2021 17:02:46 Dictated By: PEÑA MAHAN DO
[2021-01-03] MEDS ORDERED: FAMOTIDINE 20MG/2ML IV (PEPCID) IVP ONE (18:30)
[2021-01-03] MEDS: DOCUSATE SODIUM 100 MG (COLACE) CAP PO PRN (20:38)
[2021-01-03] MEDS: SIMETHICONE 80 MG (MYLICON) CHEW PO PRN (23:31)
[2021-01-04 00:50] VITALS: BP 134/90
[2021-01-04] MEDS ORDERED: IBUPROFEN 600 MG (MOTRIN) TAB PO SCH (01:30)
[2021-01-04 05:35] VITALS: BP 124/75
--- NOTE | 2021-01-04 07:08 | Anesthesia-General Post-Op ---
General Patient Condition Mental Status/LOC: Same as Preop Cardiovascular: Satisfactory Nausea/Vomiting: Absent Respiratory: Satisfactory Pain: Controlled Complications: Absent Post Op Complications Complications None Follow Up Care/Instructions Patient Instructions None needed. Anesthesia/Patient Condition Patient Condition Patient is doing well, no complaints, stable vital signs, no apparent adverse anesthesia problems. No complications reported per nursing. DAISY PRUETT CRNA Jan 04, 2021 07:08
[2021-01-04 08:35] VITALS: BP 131/71
[2021-01-04] MEDS: DOCUSATE SODIUM 100 MG (COLACE) CAP PO PRN (08:39)
[2021-01-04] MEDS: SIMETHICONE 80 MG (MYLICON) CHEW PO PRN (08:39)
[2021-01-04] MEDS: HYDROcodone/APAP 7.5 MG/325 MG (LORTAB, LORCET PLUS) TABLET PO PRN (08:51)
[2021-01-04 09:45] VITALS: BP 131/71
== END 2021-01-04 09:45 | disposition home or self-care (01) ==
LOC: SDC 06:18 → WS 09:55 → SDC 01-04 09:45
PROVIDERS: ATTEND Obstetrics & Gynecology
DX: N84.0 Polyp of corpus uteri (principal); N80.0 Endometriosis of uterus; N83.8 Other noninflammatory disorders of ovary, fallopian tube and broad ligament; N83.12 Corpus luteum cyst of left ovary; N83.11 Corpus luteum cyst of right ovary; G89.29 Other chronic pain; F32.9 Major depressive disorder, single episode, unspecified; K21.9 Gastro-esophageal reflux disease without esophagitis; N81.9 Female genital prolapse, unspecified; N71.1 Chronic inflammatory disease of uterus; Z79.899 Other long term (current) drug therapy; Z88.1 Allergy status to other antibiotic agents
CPT/HCPCS: 36415; 84703; 85025; 86850; 86900; 86901; 87081; 88307; 94664

== ENCOUNTER → 2021-02-07 | Outpatient (CLI) | payer OTHER ==
[~2021-02-07] MED LIST changes: +DCS100C PO; +HYDR-34 PO; +IBUP-844 PO; +SMT80CT PO
[2021-02-07 08:27] LABS: BASOPHILS % (AUTO) 0 % (0-10); EOSINOPHILS # (AUTO) 0.2 10^3/uL (0.0-0.3); EOSINOPHILS % (AUTO) 2 % (0-10); HEMATOCRIT 47 % (35-52); HEMOGLOBIN 15.4 g/dL (11.5-16.0); LYMPHOCYTES % (AUTO) 22 % (12-44); MEAN CORPUSCULAR HEMOGLOBIN 31 pg (25-34); MEAN CORPUSCULAR HGB CONC 33 g/dL (32-36); MEAN CORPUSCULAR VOLUME 94 fL (80-99); MEAN PLATELET VOLUME 10.9 fL (9.0-12.2); MONOCYTES # (AUTO) 0.7 10^3/uL (0.0-1.0); MONOCYTES % (AUTO) 8 % (0-12); NEUTROPHILS # (AUTO) 6.1 10^3/uL (1.8-7.8); NEUTROPHILS % (AUTO) 67 % (42-75); PLATELET COUNT 239 10^3/uL (130-400); WHITE BLOOD COUNT 9.1 10^3/uL (4.3-11.0)
[2021-02-07 08:46] LABS: ALANINE AMINOTRANSFERASE 228 U/L (0-55); ALBUMIN 4.1 GM/DL (3.2-4.5); ALKALINE PHOSPHATASE 178 U/L (40-136); AMYLASE 41 U/L (25-125); BILIRUBIN,DIRECT 0.3 MG/DL (0.0-0.3); BILIRUBIN,TOTAL 0.6 MG/DL (0.1-1.0); BUN/CREATININE RATIO 10; CALCIUM 9.2 MG/DL (8.5-10.1); CARBON DIOXIDE 26 MMOL/L (21-32); CHLORIDE 102 MMOL/L (98-107); CREATININE SERUM 0.96 MG/DL (0.60-1.30); GFR ESTIMATED > 60; GLUCOSE 107 MG/DL (70-105); LIPASE 50 U/L (8-78); POTASSIUM 3.3 MMOL/L (3.6-5.0); SODIUM 142 MMOL/L (135-145); TOTAL PROTEIN 7.6 GM/DL (6.4-8.2)
--- NOTE | 2021-02-07 15:43 | Diagnostic Imaging Report ---
EXAMINATION: US Abdomen limited. TECHNIQUE: Multiple real-time grayscale images were obtained over the right upper quadrant in various projections. HISTORY: Upper abdominal pain. COMPARISON: None available. FINDINGS: The liver is normal in size. Liver is steatotic. No focal lesions are seen. The portal vein is patent with hepatopedal flow. Gallbladder is normal without wall thickening or pericholecystic fluid. Sonographic Giron sign is negative. Common duct measures 4 mm. There is no biliary ductal dilation. The visualized portions of the pancreas are normal. The right kidney is normal without hydronephrosis. IMPRESSION: 1. Steatotic liver. Dictated by: Dictated on workstation # [id number]
== END ==
LOC: RAD 08:30
PROVIDERS: ATTEND Obstetrics & Gynecology
DX: K76.0 Fatty (change of) liver, not elsewhere classified (principal)
CPT/HCPCS: 36415; 76705; 80053; 82150; 82248; 83690; 85025

== ENCOUNTER 2021-03-10 05:30 | Outpatient (RCR) | payer OTHER ==
[~2021-03-10] VITALS: Ht 160 cm; Wt 74.4 kg
== END 2021-03-10 10:27 | disposition home or self-care (01) ==
LOC: PREOP 05:30
PROVIDERS: ATTEND Surgery
DX: Z01.812 Encounter for preprocedural laboratory examination (principal); Z12.11 Encounter for screening for malignant neoplasm of colon; K21.9 Gastro-esophageal reflux disease without esophagitis; Z20.822 Contact with and (suspected) exposure to COVID-19
CPT/HCPCS: 87635

== ENCOUNTER 2021-03-14 09:10 | Day surgery (SDC) | payer OTHER ==
[~2021-03-14] VITALS: Ht 160 cm; Wt 74.4 kg
[2021-03-14] MEDS ORDERED: LACTATED RINGERS 1,000 ML IV STA (09:20)
[2021-03-14] MEDS ORDERED: HURRICAINE EXT TUBE (BENZOCAINE) XX PRN (09:30)
--- NOTE | 2021-03-14 09:33 | Progress Note-Pre Operative ---
Pre-Operative Progress Note H&P Reviewed The H&P was reviewed, patient examined and no changes noted. Time Seen by Provider: 09:31 Date H&P Reviewed: March 14, 2021 Time H&P Reviewed: 09:31 Pre-Operative Diagnosis: ScreeningHAYLEY ERIC B DO March 14, 2021 09:33
[2021-03-14] MEDS ORDERED: LACTATED RINGERS 1,000 ML IV ONE (09:34)
[2021-03-14 09:52] VITALS: BP 137/80
[2021-03-14] MEDS ORDERED: HURRICAINE EXT TUBE (BENZOCAINE) ONE (10:04)
[2021-03-14] MEDS ORDERED: PROPOFOL INJECTION 50 ML IV ONE ×2 (10:14→10:25)
--- NOTE | 2021-03-14 10:54 | Anesthesia-General Post-Op ---
MAC Patient Condition Mental Status/LOC: Same as Preop Cardiovascular: Satisfactory Nausea/Vomiting: Absent Respiratory: Satisfactory Pain: Controlled Complications: Absent Post Op Complications Complications None Follow Up Care/Instructions Patient Instructions None needed. Anesthesiology Discharge Order Discharge Order Patient is doing well, no complaints, stable vital signs, no apparent adverse anesthesia problems. No complications reported per nursing. JAQUAN HARO CRNA March 14, 2021 10:54
--- NOTE | 2021-03-14 10:56 | Progress Note-Post Operative ---
Post-Operative Progess Note Surgeon (s)/Release Manager (s) Surgeon MAIRA BELLAMY DO Release Manager: none Pre-Operative Diagnosis Screening, GERD Post-Operative Diagnosis Esophageal Ulcer Gastritis Hiatal hernia ??gastric ulcer diverticula int hemorrhoids Procedure & Operative Findings Date of Procedure 03/14/21 Procedure Performed/Findings EGD with bx Colon Anesthesia Type IV sedation by LEADING FIREFIGHTER Estimated Blood Loss Estimated blood loss (mL): scant Specimens/Packing Specimens Removed antral bx body of stomach bx ??gastric ulcer bx GE jxn bx Esophageal ulcer bx MAIRA BELLAMY DO March 14, 2021 10:56
--- NOTE | 2021-03-14 10:57 | Endoscopy Discharge Instruct ---
Endo Procedure/Findings Findings 1.: Gastric Ulcer, Gastritis 2.: Pickett's Esophagus 3.: Hiatal Hernia 4.: Diverticulosis, Internal Hemorrhoids Discharge Instructions - Activity: You might feel a little sleepy until tomorrow. This is due to the medicine you received to relax you. Until tomorrow, you should: NOT drive a car, operate machinery or power tools. NOT drink any alcoholic beverages. NOT make any important decisions or sign importortant papers. Do not return to work until tomorrow, unless otherwise instructed. Resume previous activities tomorrow. Diet: Start by taking liquids. If you tolerate liquids, advance to solid food. 1.: EGD in 6-8 weeks 2.: Colonscopy in 10 years Notify Physician - If you experience excessive bleeding, unusual abdominal pain, fever, or chest pain, contact your doctor immediately. MAIRA BELLAMY DO March 14, 2021 10:57
[2021-03-14 10:58] VITALS: BP 155/98
[2021-03-14 11:00] VITALS: BP 155/98
[2021-03-14 11:30] VITALS: BP 152/107
[2021-03-14] MEDS ORDERED: LABETALOL HCL 20 MG/4 ML VIAL IV ONE ×2 (11:30→12:15)
[2021-03-14 12:35] VITALS: BP 114/78
--- NOTE | 2021-03-15 15:54 | OPERATIVE REPORT ---
DATE OF SERVICE: 03/14/2021 PREOPERATIVE DIAGNOSES: Screening colonoscopy and gastroesophageal reflux disease. POSTOPERATIVE DIAGNOSES: Esophageal ulcers, hiatal hernia, gastritis with questionable gastric ulcer as well as diverticula, internal hemorrhoids. PROCEDURES: 1. EGD with biopsy. 2. Colonoscopy. SURGEON: Yunier Ledesma DO EMERGENCY MANAGEMENT PROGRAM SPECIALIST: None. ANESTHESIA: IV sedation by the GLOBAL TRANSPORTATION MANAGER. SPECIMEN: Biopsy of the antrum, biopsy of a questionable gastric ulcer, biopsy of the body, biopsy of the GE junction and biopsy of the esophageal ulcers. BLOOD LOSS: Scant. FLUIDS: Per anesthesia. POSTOPERATIVE CONDITION: Stable. INDICATION FOR PROCEDURE: The patient is a 50-year-old female who has been having some GERD symptoms and she has never had a colonoscopy, needs one for screening. FINDINGS: The patient had some esophageal ulcers, had a large hiatal hernia, gastritis with questionable gastric ulcer. She also had diverticula, internal hemorrhoids. PROCEDURE NOTE: After informed consent was obtained, the patient was brought to the endoscopy suite, placed in bed in left lateral decubitus position. She was administered IV sedation by the GLOBAL TRANSPORTATION MANAGER who then monitored her vitals the entire time, heart rate, blood pressure and pulse ox and the scope was then inserted, started with the EGD, placing scope down the mouth through the esophagus. On the way down through the esophagus, saw esophageal ulcers, took a picture, pushed into the stomach, saw some gastritis, pushed into the duodenum. Duodenum looked fine. Pulled back, did a biopsy of the antrum and then saw what looked like possibly ulcers, did a biopsy of these ulcers. Retroflexed the scope, saw large hiatal hernia, took a picture of this and then took a biopsy of the body of stomach, pulled the scope into the GE junction, did a biopsy here and then suctioned all the air out of the stomach, pulled the scope into the esophagus and took biopsies of the esophageal ulcers. At this point, then pulled the scope up the esophagus and out the mouth. Switched camera, switched gloves, went down below, started the colonoscopy. Pushed all the way into about 150 cm, able to get to the cecum, took a picture of appendiceal orifice, noted the ileocecal valve, then slowly withdrew the scope insufflating to look circumferentially at the alexander looking at the cecum, up the ascending colon to the hepatic flexure, then down the transverse colon, splenic flexure, into the descending colon and in the descending colon and sigmoid, saw some diverticula, continued down into the rectum, retroflexed in the rectal vault, saw some minimal internal hemorrhoids, took a picture of this and then removed the scope. The patient tolerated the procedure. She was recovered in endoscopy suite. Job ID: [id number] DocumentID: [id number] Dictated Date: 03/15/2021 09:42:44 Loom Operator Date: 03/15/2021 15:53:45 Dictated By: DO ANTOINE MARTINEZ
== END 2021-03-14 12:40 | disposition home or self-care (01) ==
LOC: ENDO 09:10
PROVIDERS: ATTEND Surgery
DX: Z12.11 Encounter for screening for malignant neoplasm of colon (principal); K21.00 Gastro-esophageal reflux disease with esophagitis, without bleeding; K22.10 Ulcer of esophagus without bleeding; K29.70 Gastritis, unspecified, without bleeding; K31.89 Other diseases of stomach and duodenum; K64.8 Other hemorrhoids; I10 Essential (primary) hypertension; K44.9 Diaphragmatic hernia without obstruction or gangrene; K57.30 Diverticulosis of large intestine without perforation or abscess without bleeding; F32.9 Major depressive disorder, single episode, unspecified; F17.210 Nicotine dependence, cigarettes, uncomplicated; Z88.1 Allergy status to other antibiotic agents; Z90.710 Acquired absence of both cervix and uterus; Z20.822 Contact with and (suspected) exposure to COVID-19; Z90.89 Acquired absence of other organs; Z79.899 Other long term (current) drug therapy; Z80.9 Family history of malignant neoplasm, unspecified; Z83.3 Family history of diabetes mellitus
CPT/HCPCS: 84703

== ENCOUNTER 2021-03-21 16:41 | Emergency (ER) | payer OTHER ==
[~2021-03-21] VITALS: Ht 160 cm; Wt 74.4 kg
[2021-03-21] MEDS ORDERED: NITROGLYCERIN 0.4 MG SL TABS BTL 25'S SL PRN (16:45)
[2021-03-21] MEDS ORDERED: ASPIRIN 81 MG CHEW (CHILDREN'S ASA) PO ONE (16:45)
[2021-03-21] MEDS ORDERED: HYDR12.56 PO (16:52)
[2021-03-21] MEDS ORDERED: RT-ALBUTEROL/IPRATROPIUM 3 ML (DUONEB) VIAL ONE (16:53)
[2021-03-21 16:59] LABS: BASOPHILS # (AUTO) 0.1 10^3/uL (0.0-0.1); BASOPHILS % (AUTO) 0 % (0-10); EOSINOPHILS # (AUTO) 0.1 10^3/uL (0.0-0.3); EOSINOPHILS % (AUTO) 1 % (0-10); HEMATOCRIT 48 % (35-52); HEMOGLOBIN 16.5 g/dL (11.5-16.0); LYMPHOCYTES # (AUTO) 3.9 10^3/uL (1.0-4.0); LYMPHOCYTES % (AUTO) 33 % (12-44); MEAN CORPUSCULAR HEMOGLOBIN 32 pg (25-34); MEAN CORPUSCULAR HGB CONC 35 g/dL (32-36); MEAN CORPUSCULAR VOLUME 91 fL (80-99); MONOCYTES # (AUTO) 1.4 10^3/uL (0.0-1.0); MONOCYTES % (AUTO) 12 % (0-12); NEUTROPHILS # (AUTO) 6.1 10^3/uL (1.8-7.8); NEUTROPHILS % (AUTO) 53 % (42-75); PLATELET COUNT 313 10^3/uL (130-400); WHITE BLOOD COUNT 11.6 10^3/uL (4.3-11.0)
[2021-03-21] MEDS ORDERED: ANTACID SUSP 30 ML UDC (MYLANTA) ONE (17:04)
[2021-03-21] MEDS ORDERED: LIDOCAINE 2% VISCOUS 15 ML UDC ONE (17:04)
--- NOTE | 2021-03-21 17:09 | ED Cardiac General ---
History of Present Illness General Chief Complaint: Chest Pain Stated Complaint: CHEST PAIN / HIGH BP 155/107 Nursing Triage Note: c/o chest pain x 1 hour. denies radiation. reports SOA, N/V Source: patient Exam Limitations: no limitations History of Present Illness Date Seen by Provider: March 21, 2021 Time Seen by Provider: 16:50 Initial Comments This is a well-appearing 50-year-old female who presents to the ER with complain ts of left-sided chest/rib pain. States she has been having these intermittent episodes of sharp pain over the past several months, and has seen her primary care provider multiple times but has not been able to figure out source of pain. States she experiences pain multiple times throughout the day and is usually able to relieve pain with breathing exercises. States she was recently placed on hydrochlorothiazide for her blood pressure and when she took her blood pressure this afternoon noticed that her blood pressure was 153/105 at home. She called the [facility] and they recommended she go to the emergency department. States that she took her hydrochlorothiazide at 0700 this morning. Pain in her left rib region began around 0800 this morning. This afternoon she began to experience some nausea associated with her symptoms. However states that this is her normal pain that she has been experiencing for the past several months and her chief concern was her blood pressure. No fever, chills, cough, vomiting, abdominal pain. NTG SL DREDGE MATE: No ASA po DREDGE MATE: No Allergies and Home Medications Allergies Coded Allergies: erythromycin base (Verified Allergy, Unknown, 04/20/20) Home Medications Omeprazole 20 Mg Tablet.dr, 20 MG PO DAILY, (Reported) Last Action: Reviewed Patient Home Medication List Home Medication List Reviewed: Yes Review of Systems Review of Systems Constitutional: see HPI EENTM: No Symptoms Reported Respiratory: See HPI Cardiovascular: See HPI Gastrointestinal: See HPI Genitourinary: No Symptoms Reported Musculoskeletal: see HPI Skin: no symptoms reported Psychiatric/Neurological: Anxiety Endocrine: No Symptoms Reported Hematologic/Lymphatic: No Symptoms Reported Past Lgbkeff-Fstxng-Iftdnl Hx Patient Social History Alcohol Use: Denies Use Number of Drinks Today: FF Alcohol Beverage of Choice: Vodka Type Used: Cigarettes 2nd Hand Smoke Exposure: Yes Recent Infectious Disease Expo: No Recent Hopitalizations: No Seasonal Allergies Seasonal Allergies: No Past Medical History Surgeries: Yes (R ANKLE) Appendectomy, Section, Hysterectomy, Orthopedic, Tonsillectomy Respiratory: No Cardiac: No Hypertension Neurological: No Genitourinary: No Gastrointestinal: Yes Gastroesophageal Reflux Musculoskeletal: No Endocrine: No HEENT: No Cancer: No Psychosocial: Yes Sleep Difficulties, Depression Integumentary: No Blood Disorders: No Physical Exam Vital Signs Vital Signs - First Documented 03/21/21 03/21/21 16:46 17:48 Temp 36.5 Pulse 100 Resp 32 B/P (MAP) 122/98 (106) Pulse Ox 97 O2 Delivery Room Air O2 Flow Rate 2.00 Capillary Refill : Less Than 3 Seconds Height, Weight, BMI Height: '" Weight: lbs. oz. kg; 29.00 BMI Method: General Appearance: No Apparent Distress, WD/WN HEENT: PERRL/EOMI, Normal ENT Inspection Neck: Full Range of Motion, Normal Inspection Respiratory: No Accessory Muscle Use, No Respiratory Distress, Inspiration, Wheezing Cardiovascular: Regular Rate, Rhythm, No Edema, Normal Peripheral Pulses Gastrointestinal: Normal Bowel Sounds, Non Tender, Soft Extremity: Normal Inspection, Normal Range of Motion Neurologic/Psychiatric: Alert, Oriented x3, No Motor/Sensory Deficits, Normal Mood/Affect Skin: Normal Color, Warm/Dry Progress/Results/Core Measures Results/Orders Lab Results Laboratory Tests Test 03/21/21 16:50 Range/Units White Blood Count 11.6 H 4.3-11.0 10^3/uL Red Blood Count 5.23 H 3.80-5.11 10^6/uL Hemoglobin 16.5 H 11.5-16.0 g/dL Hematocrit 48 35-52 % Mean Corpuscular Volume 91 80-99 fL Mean Corpuscular Hemoglobin 32 25-34 pg Mean Corpuscular Hemoglobin Concent 35 32-36 g/dL Red Cell Distribution Width 14.1 10.0-14.5 % Platelet Count 313 130-400 10^3/uL Mean Platelet Volume 11.0 9.0-12.2 fL Immature Granulocyte % (Auto) 0 % Neutrophils (%) (Auto) 53 42-75 % Lymphocytes (%) (Auto) 33 12-44 % Monocytes (%) (Auto) 12 0-12 % Eosinophils (%) (Auto) 1 0-10 % Basophils (%) (Auto) 0 0-10 % Neutrophils # (Auto) 6.1 1.8-7.8 10^3/uL Lymphocytes # (Auto) 3.9 1.0-4.0 10^3/uL Monocytes # (Auto) 1.4 H 0.0-1.0 10^3/uL Eosinophils # (Auto) 0.1 0.0-0.3 10^3/uL Basophils # (Auto) 0.1 0.0-0.1 10^3/uL Immature Granulocyte # (Auto) 0.0 0.0-0.1 10^3/uL Prothrombin Time 12.3 12.2-14.7 SEC INR Comment 0.9 0.8-1.4 Activated Partial Thromboplast Time 25 24-35 SEC D-Dimer 0.17 0.00-0.49 UG/ML Sodium Level 136 135-145 MMOL/L Potassium Level 3.1 L 3.6-5.0 MMOL/L Chloride Level 93 L 98-107 MMOL/L Carbon Dioxide Level 24 21-32 MMOL/L Anion Gap 19 H 5-14 MMOL/L Blood Urea Nitrogen 9 7-18 MG/DL Creatinine 1.11 0.60-1.30 MG/DL Estimat Glomerular Filtration Rate 52 BUN/Creatinine Ratio 8 Glucose Level 131 H 70-105 MG/DL Calcium Level 10.0 8.5-10.1 MG/DL Corrected Calcium 9.7 8.5-10.1 MG/DL Magnesium Level 2.0 1.6-2.4 MG/DL Total Bilirubin 0.6 0.1-1.0 MG/DL Aspartate Amino Transf (AST/SGOT) 179 H 5-34 U/L Alanine Aminotransferase (ALT/SGPT) 207 H 0-55 U/L Alkaline Phosphatase 151 H 40-136 U/L Myoglobin 41.6 10.0-92.0 NG/ML Troponin I < 0.028 <0.028 NG/ML C-Reactive Protein High Sensitivity 0.06 0.00-0.50 MG/DL Total Protein 8.2 6.4-8.2 GM/DL Albumin 4.4 3.2-4.5 GM/DL My Orders Orders - EMILIE WEINSTEIN MANAGER PLACEMENT Cbc With Automated Diff (03/21/21 16:45) Magnesium (03/21/21 16:45) Chest 1 View, Ap/Pa Only (03/21/21 16:45) Ekg Tracing (03/21/21 16:45) Comprehensive Metabolic Panel (03/21/21 16:45) Myoglobin Serum (03/21/21 16:45) Protime With Inr (03/21/21 16:45) Partial Thromboplastin Time (03/21/21 16:45) O2 (03/21/21 16:45) Monitor-Rhythm Ecg Trace Only (03/21/21 16:45) Ed Iv/Invasive Line Start (03/21/21 16:45) Troponin I (03/21/21 16:45) Nitroglycerin 0.4 Mg Btl 25's (Nitrostat (03/21/21 16:45) Aspirin Chewable Tablet (Baby Aspirin Ch (03/21/21 16:45) Hs C Reactive Protein (03/21/21 17:01) Albuterol/Ipra Inhalation Soln (Duoneb I (03/21/21 17:15) Svn Small Volume Nebulizer (03/21/21 17:01) Ketorolac Injection (Toradol Injection) (03/21/21 17:15) Albuterol/Ipra Inhalation Soln (Duoneb I (03/21/21 16:53) Fibrin Degradation Products (03/21/21 17:03) Antacid Suspension (Mylanta Suspension (03/21/21 17:04) Lidocaine 2% Viscous 15 Ml (Xylocaine Vi (03/21/21 17:04) Ondansetron Injection (Zofran Injectio (03/21/21 17:30) Ondansetron Injection (Zofran Injectio (03/21/21 17:11) Ketorolac Injection (Toradol Injection) (03/21/21 17:34) Medications Given in ED Current Medications Medications Dose Ordered Sig/Nataliia Route Start Time Stop Time Status Last Admin Dose Admin Al Hydrox/Mg Hydrox/Simethicone 30 ml STK-MED ONCE .ROUTE 03/21/21 17:04 03/21/21 17:13 DC 03/21/21 17:14 30 ML Albuterol/ Ipratropium 3 ml STK-MED ONCE .ROUTE 03/21/21 16:53 03/21/21 17:02 DC 03/21/21 17:03 3 ML Aspirin 324 mg ONCE ONCE PO 03/21/21 16:45 03/21/21 16:47 DC 03/21/21 16:56 324 MG Ketorolac Tromethamine 15 mg ONCE ONCE IVP 03/21/21 17:15 03/21/21 17:16 DC 03/21/21 17:44 15 MG Lidocaine HCl 15 ml STK-MED ONCE .ROUTE 03/21/21 17:04 03/21/21 17:13 DC 03/21/21 17:14 15 ML Ondansetron HCl 4 mg ONCE ONCE IVP 03/21/21 17:30 03/21/21 17:31 DC 03/21/21 17:20 4 MG Vital Signs/I&O 03/21/21 03/21/21 03/21/21 16:46 17:48 18:11 Temp 36.5 Pulse 100 98 Resp 32 12 B/P (MAP) 122/98 (106) 105/82 Pulse Ox 97 98 94 O2 Delivery Room Air Room Air O2 Flow Rate 2.00 Blood Pressure Mean: 106 Progress Progress Note : Progress Note Patient examined and in no acute distress. States pain is coming and going. When pain is present it is sharp in nature, rates it at 10 and lasts a few seconds. However states this is a chronic issue that she is experiencing for several months so cardiac etiology unlikely. However does have history of hypertension so we will include cardiac work-up, chest x-ray, EKG, CRP. Orders given for DuoNeb x1 for respiratory wheezes. Additionally she received 324 mg of baby aspirin and Toradol 50 mg IV push. Will monitor. Labs reviewed, no elevation in troponin. D-dimer negative. Chest x-ray is negative for acute pathology. Her LFTs are elevated but at her baseline. On re-evaluation she reports feeling much improved. States that she has follow-up with Dr. Bellamy tomorrow for her history of gastric ulcer. But does report that the Toradol seemed to improve her symptoms. Reviewed discharge plan of care and she is agreeable with plan. VSS at time of discharge BP 105/82. Initial ECG Impression Date: March 21, 2021 Initial ECG Impression Time: 16:53 Initial ECG Rate: 97 Initial ECG Rhythm: Normal Sinus Initial ECG Intervals: Normal Initial ECG Impression: Nonspecific Changes Diagnostic Imaging Diagonstic Imaging: Xray Plain Films/CT/US/NM/MRI: chest Comments NAME: CHRISTOPHER LOMBARDOEileen Wylie [facility] REC#: [id number] PT STATUS: REG ER : 1970 PHYSICIAN: EMILIE WEINSTEIN APRN ADMIT DATE: 03/21/21/ER Signed Date of Exam:03/21/21 CHEST 1 VIEW, AP/PA ONLY EXAMINATION: Portable erect AP chest at 05:11 p.m. INDICATION: Chest pain. FINDINGS: The heart size is within normal limits and stable when compared to 04/25/2020. The lungs are clear. There is no evidence for failure, pneumonia, or for a pleural effusion. The mediastinum is not widened. The osseous structures are intact. IMPRESSION: There is no evidence for active disease. Dictated by: Dictated on workstation # [id number] Dict: 03/21/214 Trans: 03/21/211756 [id number] [id number] Interpreted by: CARLOS QUINN MD Electronically signed by: CARLOS QUINN MD 03/21/211756 Reviewed: Reviewed by Me Departure Impression Primary Impression: Chest wall pain Disposition: 01 HOME, SELF-CARE Condition: Improved Departure-Patient Inst. Decision time for Depature: 18:00 Referrals: KIERAN JURADO MD (PCP/Family) Primary Care Physician Patient Instructions: Chest Pain That Is Not Caused by the Heart (DC) Add. Discharge Instructions: Plan: 1. Keep follow up with Dr. Bellamy tomorrow as previously scheduled. 2. If you take Ibuprofen or Aspirin for pain you need to take with food or milk. 3. Follow up with Dr. Jurado if symptoms persist. 4. Return to ER for any new or worsening symptoms. All discharge instructions reviewed with patient and/or family. Voiced understanding. Copy Copies To 1: MAIRA BELLAMY DO Copies To 2: KIERAN JURADO MD, STORMY D APRN March 21, 2021 17:09
[2021-03-21] MEDS ORDERED: ONDANSETRON 4 MG/2 ML (SDV) Z0FRAN ONE (17:11)
[2021-03-21 17:14] LABS: ALBUMIN 4.4 GM/DL (3.2-4.5); POTASSIUM 3.1 MMOL/L (3.6-5.0)
[2021-03-21] MEDS ORDERED: RT-ALBUTEROL/IPRATROPIUM 3 ML (DUONEB) VIAL INH ONE (17:15)
[2021-03-21] MEDS ORDERED: KETOROLAC 15 MG/ML VIAL IVP ONE (17:15)
[2021-03-21 17:17] LABS: TOTAL PROTEIN 8.2 GM/DL (6.4-8.2)
--- NOTE | 2021-03-21 17:17 | Diagnostic Imaging Report ---
EXAMINATION: Portable erect AP chest at 05:11 p.m. INDICATION: Chest pain. FINDINGS: The heart size is within normal limits and stable when compared to 04/25/2020. The lungs are clear. There is no evidence for failure, pneumonia, or for a pleural effusion. The mediastinum is not widened. The osseous structures are intact. IMPRESSION: There is no evidence for active disease. Dictated by: Dictated on workstation # [id number]
[2021-03-21 17:18] LABS: BILIRUBIN,TOTAL 0.6 MG/DL (0.1-1.0)
[2021-03-21 17:19] LABS: INR 0.9 (0.8-1.4); PROTHROMBIN TIME PATIENT 12.3 SEC (12.2-14.7)
[2021-03-21 17:20] LABS: CREATININE SERUM 1.11 MG/DL (0.60-1.30)
[2021-03-21] MEDS ORDERED: ONDANSETRON 4 MG/2 ML (SDV) Z0FRAN IVP ONE (17:30)
[2021-03-21] MEDS ORDERED: KETOROLAC 30 MG/ML VIAL ONE (17:34)
[2021-03-21 18:11] VITALS: BP 105/82
== END 2021-03-21 18:17 | disposition home or self-care (01) ==
LOC: EDUNIT# 16:41 → ER 16:44
DX: R07.89 Other chest pain (principal); I10 Essential (primary) hypertension; K21.9 Gastro-esophageal reflux disease without esophagitis; Z77.22 Contact with and (suspected) exposure to environmental tobacco smoke (acute) (chronic); Z88.1 Allergy status to other antibiotic agents; Z79.899 Other long term (current) drug therapy
CPT/HCPCS: 36415; 71045; 80053; 83735; 83874; 84484; 85025; 85379; 85610; 85730; 86141; 93005; 93041

== ENCOUNTER 2021-09-15 08:23 | Emergency (ER) | payer SELFPAY ==
[~2021-09-15] VITALS: Ht 160 cm; Wt 65.9 kg
[~2021-09-15 08:23] MED LIST changes: -DCS100C PO; +DOCU-239 PO; +HYDR12.56 PO
--- OUTSIDE RECORDS SUMMARY | 2021-09-15 08:28 | XMS REPORT | Clinical Summary ---
Author Author [facility] Organization [facility] Address Unknown Phone Unavailable Care Team Providers Care Meeting Specialist Name Role Phone PCP Unavailable Allergies Comments Active Allergy Reactions Severity Noted Date Erythromycin 02/22/2019 Medications End Date Status Medication Sig Dispensed Refills Start Date Active PARoxetine (PAXIL) 10 MG 3 TABLETS AT 0 05/28 tablet BEDTIME 9 ORALLY 30 DAYS Active propranolol (INDERAL) 10 TAKE ONE 0 05/28 MG tablet TABLET TWICE 9 A DAY Active Problems No known active problems Immunizations Name Administration Dates Next Due Tdap 06/16/2019 Social History Date Tobacco Use Types Packs/Day Years Used Heavy Tobacco Smoker Cigarettes 1.5 Smokeless Tobacco: Never Used Comments Alcohol Use Standard Drinks/Week 1 pint a day Yes 0 (1 standard drink = 0.6 o z pure alcohol) Alcohol Habits Answer Date Recorded How often do you have a drink containing alcohol? No t asked How many drinks containing alcohol do you have on No t asked a typical day when you are drinking? How often do you have six or more drinks on one Not asked occasion? Comment: 1 pint a day 02/22/2019 Sex Assigned at Date Recorded Not on file Last Filed Vital Signs Reading Time Taken Comments Vital Sign 148/82 07/01/2019 1:45 PM CDT Blood Pressure 82 07/01/2019 1:45 PM CDT Pulse 36.8 C (98.3 F) 07/01/2019 1:45 PM CDT Temperature 16 07/01/2019 1:45 PM CDT Respiratory Rate 94% 07/01/2019 1:45 PM CDT Oxygen Saturation - - Inhaled Oxygen Concentration 65.8 kg (145 lb) 07/01/2019 11:18 AM CDT Weight 160 cm (5' 3") 07/01/2019 11:18 AM CDT Height 25.69 07/01/2019 11:18 AM CDT Body Mass Index Plan of Treatment Health Maintenance Due Date Last Done Comments Tobacco Cessation 1970 Counseling # Pneumococcal Vaccine: 1974 Pediatrics (0 to 5 Years) and At-Risk Patients (6 to 64 Years) (1 of 2 - PPSV23) COVID-19 Vaccine (1) 1980 Cervical Cancer Screening 1989 via Pap Smear Colorectal Screening via 2018 Colonoscopy Mammogram Screening 2018 Zoster Vaccine# (1 of 2) 2018 Influenza Vaccine (#1) 2021 Td/Tdap# 06/16/2029 06/16/2019 Results Not on filefrom Last 3 Months Insurance Type Payer Benefit Subscriber ID Effective Phone Address Plan / Dates [place] [id number] 2019-P [phone] [address] MED[address] [place] [address] Kaylen Loza Personal/F Self 1970 [address] (Work) [place] [id number] Kaylen Loza Personal/F Self 1970 [address] (Work) [place] [address] Advance Directives For more information, please contact: [phone] Patient Social Worker Palliative Care Explanation Type Date Recorded Health Care Directive
[2021-09-15] MEDS ORDERED: LACTATED RINGERS 1,000 ML IV ONE (08:45)
[2021-09-15] MEDS ORDERED: TETANUS,DIPTH,PERTUSS P/F (BOOSTRIX) 0.5 ML VIAL IM ONE (08:45)
[2021-09-15] MEDS ORDERED: ONDANSETRON 4 MG/2 ML (SDV) Z0FRAN IVP ONE ×2 (08:45→11:00)
[2021-09-15 09:09] LABS: BASOPHILS # (AUTO) 0.1 10^3/uL (0.0-0.1); BASOPHILS % (AUTO) 1 % (0-10); EOSINOPHILS # (AUTO) 0.1 10^3/uL (0.0-0.3); EOSINOPHILS % (AUTO) 1 % (0-10); HEMATOCRIT 44 % (35-52); HEMOGLOBIN 14.7 g/dL (11.5-16.0); LYMPHOCYTES # (AUTO) 3.3 10^3/uL (1.0-4.0); LYMPHOCYTES % (AUTO) 33 % (12-44); MEAN CORPUSCULAR HEMOGLOBIN 35 pg (25-34); MEAN CORPUSCULAR HGB CONC 34 g/dL (32-36); MEAN CORPUSCULAR VOLUME 102 fL (80-99); MONOCYTES # (AUTO) 0.9 10^3/uL (0.0-1.0); MONOCYTES % (AUTO) 9 % (0-12); NEUTROPHILS # (AUTO) 5.5 10^3/uL (1.8-7.8); NEUTROPHILS % (AUTO) 56 % (42-75); PLATELET COUNT 364 10^3/uL (130-400); WHITE BLOOD COUNT 9.8 10^3/uL (4.3-11.0)
[2021-09-15 09:17] LABS: ALBUMIN 4.1 GM/DL (3.2-4.5); POTASSIUM 3.2 MMOL/L (3.6-5.0)
[2021-09-15 09:18] LABS: CALCIUM 9.1 MG/DL (8.5-10.1)
[2021-09-15 09:20] LABS: TOTAL PROTEIN 7.7 GM/DL (6.4-8.2)
[2021-09-15 09:21] LABS: BILIRUBIN,TOTAL 0.2 MG/DL (0.1-1.0)
[2021-09-15 09:23] LABS: CREATININE SERUM 0.72 MG/DL (0.60-1.30)
--- NOTE | 2021-09-15 09:28 | Diagnostic Imaging Report ---
EXAMINATION: Chest 1 view HISTORY: Chest pain after trauma COMPARISON: 03/21/2021 FINDINGS: Heart size and pulmonary vasculature are normal. The lungs are clear without consolidation, pleural effusion, or pneumothorax. The osseous structures are intact. IMPRESSION: 1. No acute radiographic abnormality in the chest. Dictated by: Dictated on workstation # [id number]
[2021-09-15] MEDS ORDERED: HOLD METFORMIN - RECEIVED CONTRAST 20 ML VIAL IV SCH (09:30)
[2021-09-15] MEDS ORDERED: IOHEXOL 350 MG/ML 100 ML (OMNIPAQUE 350) VIAL IV ONE (09:30)
[2021-09-15] MEDS ORDERED: NS 100 ML (IVPB) BAG IV ONE (09:30)
--- NOTE | 2021-09-15 09:34 | ED Trauma-Multisystem ---
General Chief Complaint: Trauma-Non Activation Stated Complaint: FELL Nursing Triage Note: TO ED PER EMS PATIENT WAS FOUND ON STEPS ON [place]. PATIENT REPORTS SHE HAD BEEN DRINKING WINE ALL NIGHT,AND TRIPPED ON STEP AND FELL. FELL APX 0630 BECAUSE WAS GOING TO PICK HER BOYFRIEND UP AT WORK. HEMATOMA TO R SIDE OF HEAD WITH LACERATION TO SIDE. C COLLAR IN PLACE BY EMS. Source of Information: Patient Exam Limitations: No Limitations History of Present Illness Date Seen by Provider: Sep 15, 2021 Time Seen by Provider: 08:25 Initial Comments This 51-year-old woman presents to the emergency room via EMS after having an apparent fall down some concrete steps at an apartment building. EMS reports there were approximately 7 stairs and she was found at the bottom of them. It is uncertain how far she fell. The fall was unwitnessed and bystanders found her lying on the ground. She has obvious abrasions and areas of swelling from contusion or hematoma on her forehead. GCS is 12. She is obviously intoxicated and smells heavily of alcohol. She is arousable to voice and is able to answer some questions, but she appears rather intoxicated. She arrives in c-collar and remains in c-collar. Allergies and Home Medications Allergies Coded Allergies: erythromycin base (Verified Allergy, Unknown, 04/20/20) Patient Home Medication List Home Medication List Reviewed: Yes Hydrochlorothiazide (Hydrochlorothiazide) 12.5 Mg Tablet, 12.5 MG PO, (Reported) Entered as Reported by: EH SANCHEZ on 03/21/21 1652 Omeprazole (Omeprazole) 20 Mg Tablet.dr, 20 MG PO DAILY, (Reported) Entered as Reported by: ROMI IRBY on 12/29/20 1432 Review of Systems Review of Systems Constitutional: see HPI Eyes: No Symptoms Reported Ears: No Symptoms Reported Nose: No Symptoms Reported Mouth: No Symptoms Reported Throat: No Symptoms to Report Respiratory: other (Hypoxia) Cardiovascular: No Symptoms Reported Gastrointestinal: no symptoms reported Genitourinary: no symptoms reported : No Musculoskeletal: see HPI Skin: see HPI Psychiatric/Neurological: See HPI Past Sduhkwh-Phtkjp-Icpkjq Hx Patient Social History Tobacco Use?: Yes Substance use?: No Alcohol Use?: Yes Alcohol type: Wine Alcohol Frequency: Daily Pt feels they are or have been: No Immunizations Up To Date First/Initial COVID19 Vaccinat: YES Second COVID19 Vaccination Johnnie: YES 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 Seasonal Allergies Seasonal Allergies: No Past Medical History Surgeries: Yes (R ANKLE) Appendectomy, Section, Hysterectomy, Orthopedic, Tonsillectomy Respiratory: No Cardiac: No Hypertension Neurological: No Genitourinary: No Gastrointestinal: Yes Gastroesophageal Reflux Musculoskeletal: No Endocrine: No HEENT: No Cancer: No Psychosocial: Yes Sleep Difficulties, Depression Integumentary: No Blood Disorders: No Physical Exam Vital Signs Vital Signs - First Documented 09/15/21 09/15/21 08:37 08:50 Temp 36.4 Pulse 77 Resp 18 B/P (MAP) 131/94 (106) Pulse Ox 94 O2 Delivery Room Air O2 Flow Rate 2.00 FiO2 88 Height, Weight, BMI Height: '" Weight: lbs. oz. kg; 25.00 BMI Method: General Appearance: WD/WN, Other (Appears intoxicated but in no distress. Smells heavily of alcohol) Head: Other (Hematoma/contusion on the forehead. 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 Does follow instructions and moves all 4 extremities. Intoxicated) [place] Coma Score Best Eye Response (Gaurav): (3) Open to Voice Best Verbal Response ([place]): (3) Inappropriate Words Best Motor Response ([place]): (6) Obeys Commands [place] Total: 12 Progress/Results/Core Measures Results/Orders Lab Results Laboratory Tests Test 09/15/21 09:00 09/15/21 10:37 Range/Units White Blood Count 9.8 4.3-11.0 10^3/uL Red Blood Count 4.26 3.80-5.11 10^6/uL Hemoglobin 14.7 11.5-16.0 g/dL Hematocrit 44 35-52 % Mean Corpuscular Volume 102 H 80-99 fL Mean Corpuscular Hemoglobin 35 H 25-34 pg Mean Corpuscular Hemoglobin Concent 34 32-36 g/dL Red Cell Distribution Width 15.9 H 10.0-14.5 % Platelet Count 364 130-400 10^3/uL Mean Platelet Volume 11.0 9.0-12.2 fL Immature Granulocyte % (Auto) 0 % Neutrophils (%) (Auto) 56 42-75 % Lymphocytes (%) (Auto) 33 12-44 % Monocytes (%) (Auto) 9 0-12 % Eosinophils (%) (Auto) 1 0-10 % Basophils (%) (Auto) 1 0-10 % Neutrophils # (Auto) 5.5 1.8-7.8 10^3/uL Lymphocytes # (Auto) 3.3 1.0-4.0 10^3/uL Monocytes # (Auto) 0.9 0.0-1.0 10^3/uL Eosinophils # (Auto) 0.1 0.0-0.3 10^3/uL Basophils # (Auto) 0.1 0.0-0.1 10^3/uL Immature Granulocyte # (Auto) 0.0 0.0-0.1 10^3/uL Sodium Level 141 135-145 MMOL/L Potassium Level 3.2 L 3.6-5.0 MMOL/L Chloride Level 102 98-107 MMOL/L Carbon Dioxide Level 25 21-32 MMOL/L Anion Gap 14 5-14 MMOL/L Blood Urea Nitrogen 10 7-18 MG/DL Creatinine 0.72 0.60-1.30 MG/DL Estimat Glomerular Filtration Rate 85 BUN/Creatinine Ratio 14 Glucose Level 113 H 70-105 MG/DL Calcium Level 9.1 8.5-10.1 MG/DL Corrected Calcium 9.0 8.5-10.1 MG/DL Total Bilirubin 0.2 0.1-1.0 MG/DL Aspartate Amino Transf (AST/SGOT) 59 H 5-34 U/L Alanine Aminotransferase (ALT/SGPT) 44 0-55 U/L Alkaline Phosphatase 101 40-136 U/L Total Protein 7.7 6.4-8.2 GM/DL Albumin 4.1 3.2-4.5 GM/DL Lipase 95 H 8-78 U/L Serum Test, Qualitative NEGATIVE NEGATIVE Serum Alcohol 301 *H <10 MG/DL Urine Color YELLOW Urine Clarity CLEAR Urine pH 5.5 5-9 Urine Specific [place] <=1.005 1.016-1.022 Urine Protein NEGATIVE NEGATIVE Urine Glucose (UA) NEGATIVE NEGATIVE Urine Ketones NEGATIVE NEGATIVE Urine Nitrite NEGATIVE NEGATIVE Urine Bilirubin NEGATIVE NEGATIVE Urine Urobilinogen 0.2 < = 1.0 MG/DL Urine Leukocyte Esterase NEGATIVE NEGATIVE Urine RBC (Auto) 1+ H NEGATIVE Urine RBC 0-2 /HPF Urine WBC RARE /HPF Urine Squamous Epithelial Cells RARE /HPF Urine Crystals NONE /LPF Urine Bacteria NEGATIVE /HPF Urine Casts NONE /LPF Urine Mucus NEGATIVE /LPF Urine Culture Indicated NO Urine Opiates Screen NEGATIVE NEGATIVE Urine Oxycodone Screen NEGATIVE NEGATIVE Urine Methadone Screen NEGATIVE NEGATIVE Urine Propoxyphene Screen NEGATIVE NEGATIVE Urine Barbiturates Screen NEGATIVE NEGATIVE Ur Tricyclic Antidepressants Screen NEGATIVE NEGATIVE Urine Phencyclidine Screen NEGATIVE NEGATIVE Urine Amphetamines Screen NEGATIVE NEGATIVE Urine Methamphetamines Screen NEGATIVE NEGATIVE Urine Benzodiazepines Screen NEGATIVE NEGATIVE Urine Cocaine Screen NEGATIVE NEGATIVE Urine Cannabinoids Screen NEGATIVE NEGATIVE My Orders Orders - BIJU CUMMINS MD Alcohol (09/15/21 08:38) Cbc With Automated Diff (09/15/21 08:38) Comprehensive Metabolic Panel (09/15/21 08:38) Drug Screen Stat (Urine) (09/15/21 08:38) Lipase (09/15/21 08:38) Ua Culture If Indicated (09/15/21 08:38) Hcg,Qualitative Serum (09/15/21 08:38) Ct Head/Cervical Spine Wo (09/15/21 08:38) Chest 1 View, Ap/Pa Only (09/15/21 08:38) End Tidal Co2 (09/15/21 08:38) Monitor-Rhythm Ecg Trace Only (09/15/21 08:38) Ed Iv/Invasive Line Start (09/15/21 08:38) Ct Chest/Abdomen/Pelvis W (09/15/21 08:38) Lactated Ringers (Lr 1000 Ml Iv Solution (09/15/21 08:45) Ondansetron Injection (Zofran Injectio (09/15/21 08:45) Dipht,Pertuss(Acell),Tet Adult (Boostrix (09/15/21 08:45) Iohexol Injection (Omnipaque 350 Mg/Ml 1 (09/15/21 09:30) Received Contrast (Hold Metformin- Contr (09/15/21 09:30) Ns (Ivpb) (Sodium Chloride 0.9% Ivpb Bag (09/15/21 09:30) Potassium Chloride (Tablet) (Klor Con Ta (09/15/21 11:00) Ondansetron Injection (Zofran Injectio (09/15/21 11:00) Medications Given in ED Current Medications Medications Dose Ordered Sig/Nataliia Route Start Time Stop Time Status Last Admin Dose Admin Diphtheria/ Tetanus/Acell Pertussis 0.5 ml ONCE ONCE IM 09/15/21 08:45 09/15/21 08:46 DC 09/15/21 09:05 0.5 ML Iohexol 100 ml ONCE ONCE IV 09/15/21 09:30 09/15/21 09:31 DC 09/15/21 09:56 85 ML Lactated Ringer's 1,000 ml @ 0 mls/hr Q0M ONCE IV 09/15/21 08:45 09/15/21 08:46 DC 09/15/21 08:58 1,000 MLS/HR Ondansetron HCl 4 mg ONCE ONCE IVP 09/15/21 08:45 09/15/21 08:46 DC 09/15/21 08:56 4 MG Ondansetron HCl 4 mg ONCE ONCE IVP 09/15/21 11:00 09/15/21 11:01 DC 09/15/21 11:47 4 MG Potassium Chloride 40 meq ONCE ONCE PO 09/15/21 11:00 09/15/21 11:01 DC 09/15/21 12:40 40 MEQ Sodium Chloride 100 ml ONCE ONCE IV 09/15/21 09:30 09/15/21 09:31 DC 09/15/21 09:57 80 ML Vital Signs/I&O 09/15/21 09/15/21 09/15/21 09/15/21 08:37 08:50 11:32 12:53 Temp 36.4 Pulse 77 78 72 Resp 18 18 18 B/P (MAP) 131/94 (106) 100/68 108/81 Pulse Ox 94 99 94 O2 Delivery Room Air Nasal Cannula Nasal Cannula Room Air O2 Flow Rate 2.00 2.00 FiO2 88 Blood Pressure Mean: 106 Progress Progress Note : Time: 12:[address] imaging was negative for any serious traumatic injuries. Patient was allowed to rest in the ER while she sobered. Oxygen saturation initially was in the high 80s on room air and she required supplemental oxygen by nasal cannula. She was eventually weaned off the oxygen and maintained oxygen saturations in the mid 90s while asleep. Patient eventually was up and ambulatory. She had received a liter of LR and prophylactic Zofran. Oral potassium was given for potassium replacement prior to discharge. Tetanus booster was administered. None of her abrasions required repair or intervention. Wounds were cleaned with saline and chlorhexidine. C-collar was removed at my direction after review of CT scans. Diagnostic Imaging Diagonstic Imaging: Xray Plain Films/CT/US/NM/MRI: chest Comments Chest x-ray viewed by me and report reviewed. See report below: NAME: CHRISTEL LOMBARDO [facility] REC#: [id number] PT STATUS: REG ER : 1970 PHYSICIAN: BIJU CUMMINS MD ADMIT DATE: 09/15/21/ER Draft Date of Exam:09/15/21 CHEST 1 VIEW, AP/PA ONLY EXAMINATION: Chest 1 view HISTORY: Chest pain after trauma COMPARISON: 03/21/2021 FINDINGS: Heart size and pulmonary vasculature are normal. The lungs are clear without consolidation, pleural effusion, or pneumothorax. The osseous structures are intact. IMPRESSION: 1. No acute radiographic abnormality in the chest. Dictated on workstation # [id number] Dict: 09/15/21926 Trans: 09/15/21927 [facility] [id number] Interpreted by: JAN SEXTON DO Diagonstic Imaging: CT Plain Films/CT/US/NM/MRI: c-spine, head Comments CT head and C-spine viewed by me and report reviewed. See report below: NAME: CHRISTEL LOMBARDO [facility] REC#: [id number] PT STATUS: REG ER : 1970 PHYSICIAN: BIJU CUMMINS MD ADMIT DATE: 09/15/21/ER Signed Date of Exam:09/15/21 CT HEAD/CERVICAL SPINE WO PROCEDURE: CT head and CT cervical spine without contrast. TECHNIQUE: Multiple contiguous axial images were obtained through the brain and cervical spine without the use of intravenous contrast. Sagittal and coronal reformations through the cervical spine were then performed. Auto Exposure Controls were utilized during the CT exam to meet ALARA standards for radiation dose reduction. INDICATION: Fall. Head and neck pain. Alcohol intoxication. COMPARISON: None. FINDINGS: CT head: No large acute territorial ischemia, mass, or hemorrhage. No midline shift or mass effect. The ventricles, cortical sulci, and basilar cisterns are patent and unremarkable. A scalp contusion is seen overlying the right frontal region. The calvarium is intact. Retained secretions are seen throughout the right maxillary sinus. The mastoid air cells are clear. CT cervical spine: No acute fracture or dislocation is seen in the cervical spine. No focal osseous lesions. Vertebral body heights are well-maintained. The craniocervical junction is well-maintained. Mild degenerative changes are seen in the cervical spine with disc osteophyte complexes and uncovertebral arthropathy. Soft tissues of the neck are unremarkable. The lung apices are clear. IMPRESSION: 1. No hemorrhage or focal intra-axial mass. No CT evidence of large acute territorial ischemia. 2. No acute fracture or dislocation in the cervical spine. 3. Scalp contusion overlying the right frontal region. No associated calvarial fracture. 4. Retained secretions throughout the right maxillary sinus. Dictated by: Dictated on workstation # [id number] Dict: 09/15/2155 Trans: 09/15/21 1003 [id number] Interpreted by: YURI CHOW DO Electronically signed by: YURI CHOW DO 09/15/21 1003 Diagonstic Imaging: CT Plain Films/CT/US/NM/MRI: chest, abdomen, pelvis Comments CT chest, abdomen and pelvis viewed by me and report reviewed. See report below: NAME: CHRISTEL LOMBARDO [facility] REC#: [id number] PT STATUS: REG ER : 1970 PHYSICIAN: BIJU CUMMINS MD ADMIT DATE: 09/15/21/ER Signed Date of Exam:09/15/21 CT CHEST/ABDOMEN/PELVIS W EXAMINATION: CT chest, abdomen and pelvis with intravenous contrast. TECHNIQUE: Multiple contiguous axial images were obtained through the chest, abdomen and pelvis after the uneventful administration of intravenous contrast. All CT scans use one or more of the following dose optimizing techniques: automated exposure control, MA and/or KvP adjustment based on patient size and exam type or iterative reconstruction. HISTORY: Chest and abdomen pain after trauma. COMPARISON: CT 09/22/2020 FINDINGS: Thyroid: The visualized thyroid gland is normal. Mediastinum: Heart size is normal without significant pericardial effusion. The aorta is normal in caliber. No suspicious lymphadenopathy. Lungs and airways: The lungs are clear without consolidation, pleural effusion, or pneumothorax. There is atelectasis within the dependent lungs. The airways are normal. Solid organs: The liver is normal without focal lesion. The gallbladder is normal. There is no biliary ductal dilation. Pancreas is normal. Spleen is normal. Adrenal glands are normal. The kidneys are normal without hydronephrosis. Bowel: The stomach and small bowel are normal without obstruction. The colon is unremarkable. No findings of acute appendicitis. Peritoneum: There is no intraperitoneal free fluid or free air. No suspicious lymphadenopathy. Vasculature: Calcification of the aorta without aneurysm. Musculoskeletal: No suspicious osseous lesion or compression fracture. There is a chronic right rib fracture. No new acute fracture is seen. Pelvis: The uterus is surgically absent. No adnexal mass. The urinary bladder is normal. IMPRESSION: 1. No acute abnormality in the chest, abdomen, or pelvis. Dictated by: Dictated on workstation # [id number] Dict: 09/15/21 1005 Trans: 09/15/21 1112 [id number] Interpreted by: JAN SEXTON DO Electronically signed by: JAN SEXTON DO 09/15/21 1112 Departure Impression Primary Impression: Fall down stairs Qualified Codes: W10.8XXA - Fall (on) (from) other stairs and steps, initial encounter Additional Impressions: Alcohol intoxication Qualified Codes: F10.929 - Alcohol use, unspecified with intoxication, unspecified Multiple abrasions Facial hematoma Qualified Codes: S00.83XA - Contusion of other part of head, initial encounter Hypokalemia Disposition: 01 HOME, SELF-CARE Condition: Improved Departure-Patient Inst. Decision time for Depature: 12:42 Referrals: KIERAN JURADO MD (PCP/Family) Primary Care Physician Patient Instructions: Alcohol Use Disorder ED, HEMATOMA Add. Discharge Instructions: Monitor your wounds for signs of infection such as increasing redness, increasing swelling, puslike drainage, or fever. Return to care promptly if you notice any of the symptoms. You may apply ice to your hematomas and swollen injuries in 20-minute intervals as needed. You may use ibuprofen up to 600 mg every 6 hours as needed for short-term treatment of pain. Follow-up with your primary care provider soon as possible. Drink plenty of clear liquids to stay well-hydrated and eat a well-balanced diet. Avoid drinking alcohol to excess or to intoxication to avoid other potentially life-threatening traumas. Call with questions or concerns. Return to the emergency room if you have any other urgent health issues or concerns. All discharge instructions reviewed with patient and/or family. Voiced understanding. Copy Copies To 1: KIERAN JURADO MD, JOSHUA T MD Sep 15, 2021 09:34
--- NOTE | 2021-09-15 09:58 | Diagnostic Imaging Report ---
PROCEDURE: CT head and CT cervical spine without contrast. TECHNIQUE: Multiple contiguous axial images were obtained through the brain and cervical spine without the use of intravenous contrast. Sagittal and coronal reformations through the cervical spine were then performed. Auto Exposure Controls were utilized during the CT exam to meet ALARA standards for radiation dose reduction. INDICATION: Fall. Head and neck pain. Alcohol intoxication. COMPARISON: None. FINDINGS: CT head: No large acute territorial ischemia, mass, or hemorrhage. No midline shift or mass effect. The ventricles, cortical sulci, and basilar cisterns are patent and unremarkable. A scalp contusion is seen overlying the right frontal region. The calvarium is intact. Retained secretions are seen throughout the right maxillary sinus. The mastoid air cells are clear. CT cervical spine: No acute fracture or dislocation is seen in the cervical spine. No focal osseous lesions. Vertebral body heights are well-maintained. The craniocervical junction is well-maintained. Mild degenerative changes are seen in the cervical spine with disc osteophyte complexes and uncovertebral arthropathy. Soft tissues of the neck are unremarkable. The lung apices are clear. IMPRESSION: 1. No hemorrhage or focal intra-axial mass. No CT evidence of large acute territorial ischemia. 2. No acute fracture or dislocation in the cervical spine. 3. Scalp contusion overlying the right frontal region. No associated calvarial fracture. 4. Retained secretions throughout the right maxillary sinus. Dictated by: Dictated on workstation # [id number]
--- NOTE | 2021-09-15 10:20 | Diagnostic Imaging Report ---
EXAMINATION: CT chest, abdomen and pelvis with intravenous contrast. TECHNIQUE: Multiple contiguous axial images were obtained through the chest, abdomen and pelvis after the uneventful administration of intravenous contrast. All CT scans use one or more of the following dose optimizing techniques: automated exposure control, MA and/or KvP adjustment based on patient size and exam type or iterative reconstruction. HISTORY: Chest and abdomen pain after trauma. COMPARISON: CT 09/22/2020 FINDINGS: Thyroid: The visualized thyroid gland is normal. Mediastinum: Heart size is normal without significant pericardial effusion. The aorta is normal in caliber. No suspicious lymphadenopathy. Lungs and airways: The lungs are clear without consolidation, pleural effusion, or pneumothorax. There is atelectasis within the dependent lungs. The airways are normal. Solid organs: The liver is normal without focal lesion. The gallbladder is normal. There is no biliary ductal dilation. Pancreas is normal. Spleen is normal. Adrenal glands are normal. The kidneys are normal without hydronephrosis. Bowel: The stomach and small bowel are normal without obstruction. The colon is unremarkable. No findings of acute appendicitis. Peritoneum: There is no intraperitoneal free fluid or free air. No suspicious lymphadenopathy. Vasculature: Calcification of the aorta without aneurysm. Musculoskeletal: No suspicious osseous lesion or compression fracture. There is a chronic right rib fracture. No new acute fracture is seen. Pelvis: The uterus is surgically absent. No adnexal mass. The urinary bladder is normal. IMPRESSION: 1. No acute abnormality in the chest, abdomen, or pelvis. Dictated by: Dictated on workstation # [id number]
[2021-09-15 10:45] LABS: BILIRUBIN,URINE NEGATIVE (NEGATIVE); CLARITY,URINE CLEAR; COLOR,URINE YELLOW; GLUCOSE, URINE (UA) NEGATIVE (NEGATIVE); KETONES,URINE NEGATIVE (NEGATIVE); LEUKOCYTE ESTERASE ,URINE NEGATIVE (NEGATIVE); NITRITE,URINE NEGATIVE (NEGATIVE); PH,URINE 5.5 (5-9); PROTEIN,URINE NEGATIVE (NEGATIVE)
[2021-09-15 10:57] LABS: BACTERIA,URINE NEGATIVE /HPF; RBC,URINE 0-2 /HPF; SQUAMOUS EPITHELIAL CELL,UR RARE /HPF; WBC,URINE RARE /HPF
[2021-09-15 10:58] LABS: AMPHETAMINE SCREEN, URINE NEGATIVE (NEGATIVE); BARBITURATE SCREEN URINE NEGATIVE (NEGATIVE); BENZODIAZEPINES SCREEN URINE NEGATIVE (NEGATIVE); CANNABINOID SCREEN, URINE NEGATIVE (NEGATIVE); COCAINE SCREEN URINE NEGATIVE (NEGATIVE); METHADONE STAT NEGATIVE (NEGATIVE); METHAMPHETAMINE SCREEN URINE S NEGATIVE (NEGATIVE); OPIATE SCREEN URINE NEGATIVE (NEGATIVE); OXYCODONE STAT NEGATIVE (NEGATIVE); PROPOXYPHENE STAT NEGATIVE (NEGATIVE); TRICYCLIC ANTIDEPRESSANTS SCRE NEGATIVE (NEGATIVE)
[2021-09-15] MEDS ORDERED: KCL 10 MEQ TAB (MICRO K) PO ONE (11:00)
[2021-09-15 12:53] VITALS: BP 108/81
== END 2021-09-15 12:53 | disposition home or self-care (01) ==
LOC: EDUNIT# 08:23 → ER 08:25
DX: S00.83XA Contusion of other part of head, initial encounter (principal); F10.129 Alcohol abuse with intoxication, unspecified; E87.6 Hypokalemia; I10 Essential (primary) hypertension; K21.9 Gastro-esophageal reflux disease without esophagitis; R40.2420 Glasgow coma scale score 9-12, unspecified time; Z72.0 Tobacco use; Z23 Encounter for immunization; Z79.899 Other long term (current) drug therapy; W10.8XXA Fall (on) (from) other stairs and steps, initial encounter
CPT/HCPCS: 70450; 71045; 71260; 72125; 74177; 80053; 80306; 81000; 83690; 84703; 85025; 93041; 99284; G0480; 36415; 80320; 90715